=== PATIENT | male | born 1950 | race Caucasian/White ===

== ENCOUNTER → 2017-10-22 12:12 | Outpatient (CLI) | payer OTHER, SELFPAY ==
--- NOTE | 2017-10-22 12:14 | DI.RAD.S_ITS ---
PROCEDURE: XR FOOT RT MIN 3V INDICATIONS: foot injury/pain TECHNIQUE: 3 views of the foot were acquired. COMPARISON: None. FINDINGS: Bones: No fractures or dislocations. No suspicious bony lesions. Mild marginal spurring at the first MTPJ. Plantar spur posterior calcaneus. Soft tissues: No tibiotalar joint effusion. Achilles tendon appears normal. Periarticular calcifications medial to the first IP joint. IMPRESSION: No acute fracture. Mild degenerative changes. Dictated by: Mateus Dong M.D. on 10/22/2017 at 13:05 Approved by: Mateus Dong M.D. on 10/22/2017 at 13:07
== END ==
PROVIDERS: Family Provider Internal Medicine; PCP Internal Medicine; Visit Provider Physician Assistant
DX: M79.671 Pain in right foot (principal)
CPT/HCPCS: 73630

== ENCOUNTER → 2017-11-12 10:09 | Outpatient (CLI) | payer OTHER, SELFPAY ==
--- NOTE | 2017-11-12 10:11 | DI.RAD.S_ITS ---
PROCEDURE: XR CHEST 2V INDICATIONS: right sided chest pain, pain with inspiration TECHNIQUE: 2 views of the chest were acquired. COMPARISON: None. FINDINGS: Surgical changes and devices: None. Lungs and pleura: No pleural effusions or pneumothorax. Diffuse, widespread bilateral interstitial opacities present. No focal lung consolidation. Mediastinum: Mediastinal contours are normal. Heart size is normal. Bones and chest wall: No suspicious bony abnormalities. Soft tissues appear unremarkable. IMPRESSION: 1. Diffuse, bilateral widespread interstitial opacities are present which may be chronic and related to pulmonary fibrosis, although acute interstitial process such as pulmonary edema or atypical pneumonia cannot be excluded and clinical correlation and followup is recommended. Comparison with old radiographs if available would be helpful. Continued surveillance with chest radiographs could also be performed as clinically warranted Dictated by: Jesus HO Interpreted: Marcos Head MD on 11/12/2017 at 10:44 Approved by: Marcos Head M.D. on 11/12/2017 at 13:04
== END ==
PROVIDERS: Family Provider Internal Medicine; PCP Internal Medicine; Visit Provider Internal Medicine
DX: R07.1 Chest pain on breathing (principal)
CPT/HCPCS: 71046

== ENCOUNTER → 2017-11-16 07:34 | Outpatient (CLI) | payer OTHER, SELFPAY ==
--- NOTE | 2017-11-16 07:39 | DI.CT.S_ITS ---
PROCEDURE: CT CHEST WO CON INDICATIONS: ABNORMAL FINDING OF LUNG FIELD TECHNIQUE: Noncontrast 2.0-2.5 mm thick sections acquired from the pulmonary apices to the posterior costophrenic angles. 7 mm thick coronal and sagittal MIP reformats were then acquired. A low radiation dose technique was utilized. COMPARISON: [facility], CR, XR CHEST 2V, 11/12/2017, 10:08. FINDINGS: Image quality: Diagnostic, given the low radiation dose technique. Lungs and pleura: The see diffuse interstitial pattern seen on plain film is less apparent and may have represented an acute process such as a atypical pneumonia or allogenic inflammation that is resolving. There is a subpleural bleb and mild thickening in the lateral aspect of the right upper lobe. Minimal reticular nodular densities in the periphery of the lung bilaterally. There is a 10 mm subpleural groundglass nodule in the right lower lobe, series 3/image 38, with mild associated groundglass density. No pleural effusions or pneumothorax. Central airways appear patent bilaterally. Mediastinum: Heart size is normal. No pericardial effusion. No mediastinal adenopathy by size criteria. Thoracic aorta and central pulmonary arteries are normal in size. Esophagus is normal in caliber. No hiatal hernia. Bones and chest wall: No suspicious bony lesions. No vertebral body compression fractures. No axillary or supraclavicular adenopathy by size criteria. Thyroid gland appears normal. Abdomen: Visualized upper abdomen solid organs and bowel loops appear normal in the absence of contrast. Partially visualized water density cystic mass upper pole of the left kidney. IMPRESSION: 1. Diffuse interstitial process on plain film exam is less apparent on this study, possibly resolving acute inflammatory process. Follow up with plain film exam in 3-6 weeks is suggested. 2. Focal area of groundglass opacity and 1 cm nodular density is nonspecific. A followup noncontrast CT chest is advised as noted below Fleischner Society criteria for SUB-SOLID lung nodule followup. Solitary pure ground-glass nodules<6 mm (ground glass or part solid)No followup needed. 6 mm or larger (ground glass)CT at 6-12 months to confirm persistence, then CT every 2 years until 5 years.6 mm or larger (part solid)CT at 3-6 months to confirm persistence, then annual CT until 5 years if unchanged and solid component remains <6 mm. Multiple sub-solid nodules<6 mmCT at 3-6 months, then CT consider at 2 & 4 years for high risk patients. [address] at 3-6 months. Subsequent management based on most suspicious lesions. Recommendations do not apply to lung cancer screening, patients with immunosuppression, or patients with known primary cancer. Dictated by: Mateus Dong M.D. on 11/16/2017 at 8:31 Approved by: Mateus Dong M.D. on 11/16/2017 at 8:44
== END ==
PROVIDERS: Family Provider Internal Medicine; PCP Internal Medicine; Visit Provider Internal Medicine
DX: R91.8 Other nonspecific abnormal finding of lung field (principal)
CPT/HCPCS: 71250

== ENCOUNTER → 2018-01-22 07:05 | Outpatient (CLI) | payer OTHER, SELFPAY ==
--- NOTE | 2018-01-22 07:07 | DI.RAD.S_ITS ---
PROCEDURE: XR CHEST 2V INDICATIONS: abnormal CXR and CT TECHNIQUE: 2 views of the chest were acquired. COMPARISON: [facility], CR, XR CHEST 2V, 11/12/2017, 10:08. FINDINGS: Surgical changes and devices: None. Lungs and pleura: No pleural effusions or pneumothorax. Diffuse bilateral interstitial prominence is unchanged, no focal consolidation has developed. Mediastinum: Mediastinal contours are normal. Heart size is normal. Bones and chest wall: No suspicious bony abnormalities. Soft tissues appear unremarkable. IMPRESSION: Findings probably represent chronic interstitial lung disease of indeterminate etiology. No interval change or acute process is evident. Dictated by: Mateus Dong M.D. on 01/22/2018 at 8:11 Approved by: Mateus Dong M.D. on 01/22/2018 at 8:12
== END ==
PROVIDERS: Family Provider Internal Medicine; PCP Internal Medicine; Visit Provider Internal Medicine
DX: R91.8 Other nonspecific abnormal finding of lung field (principal)
CPT/HCPCS: 71046

== ENCOUNTER → 2018-03-25 10:21 | Outpatient (CLI) | payer OTHER, SELFPAY ==
--- NOTE | 2018-03-25 10:27 | DI.RAD.S_ITS ---
PROCEDURE: XR CHEST 2V INDICATIONS: chronic cough, abnormal CT scan TECHNIQUE: 2 views of the chest were acquired. COMPARISON: [facility], CT, CT CHEST WO CON, 11/16/2017, 7:33. [facility], CR, XR CHEST 2V, 01/22/2018, 6:45. [facility], CR, XR CHEST 2V, 11/12/2017, 10:08. FINDINGS: Surgical changes and devices: None. Lungs and pleura: No pleural effusions or pneumothorax. Lungs are abnormal with a chronic mild interstitial prominence. Mediastinum: Mediastinal contours are normal. Heart size is normal. Bones and chest wall: No suspicious bony abnormalities. Soft tissues appear unremarkable. 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 The area of plain film concern from CT scanning 11/16/17 shows no evidence of interval development of mass. Please review the recommendations from the prior CT report and determine whether CT followup is warranted clinically. Abnormalities visible by CT scanning may not be detectable by followup plain film imaging. Dictated by: Cj Last M.D. on 03/25/2018 at 10:53 Approved by: Cj Last M.D. on 03/25/2018 at 10:55
== END ==
PROVIDERS: PCP Internal Medicine; Visit Provider Internal Medicine
DX: J84.9 Interstitial pulmonary disease, unspecified (principal); R05 Cough
CPT/HCPCS: 71046

== ENCOUNTER → 2018-04-04 07:11 | Outpatient (CLI) | payer OTHER, SELFPAY | PROVIDERS: PCP Internal Medicine; Visit Provider Internal Medicine | DX: R10.9 Unspecified abdominal pain (principal) | CPT/HCPCS: 86677 ==

== ENCOUNTER → 2018-04-11 08:53 | Outpatient (CLI) | payer OTHER, SELFPAY ==
--- NOTE | 2018-04-12 16:33 | PM.PFT.1 ---
Pulmonary Function Test Referral & Results Date Patient Seen: 04/11/18 Requesting provider: Gina Fontanez Indication: Cough Results: The spirometry demonstrates an FVC of 4.79 L which is 110% of predicted. The FEV1 was measured at 4.25 L which is 132% of predicted. The FEV1/FVC ratio was 89 which is 119% of predicted. Following the administration of bronchodilator there was no appreciable change in above normal numbers. Lung volumes show an SVC of 5.09 L which is 114% of predicted. The diffusing capacity was measured at 29.97 which is 96% of predicted. The maximum voluntary ventilation was normal Interpretation: This study demonstrates normal pulmonary function
== END ==
PROVIDERS: Family Provider Internal Medicine; PCP Internal Medicine; Visit Provider Internal Medicine
DX: R05 Cough (principal)
CPT/HCPCS: 94010; 94060; 94726; 94729

== ENCOUNTER → 2018-04-17 08:42 | Outpatient (CLI) | payer OTHER, SELFPAY ==
--- NOTE | 2018-04-17 08:49 | DI.CT.S_ITS ---
PROCEDURE: CT CHEST WO CON INDICATIONS: Abnormal ground glass opacities TECHNIQUE: Noncontrast 2.0-2.5 mm thick sections acquired from the pulmonary apices to the posterior costophrenic angles. 7 mm thick coronal and sagittal MIP reformats were then acquired. A low radiation dose technique was utilized. COMPARISON: [facility], CT, CT CHEST WO CON, 11/16/2017, 7:33. FINDINGS: Image quality: Diagnostic, given the low radiation dose technique. Lungs and pleura: Previously described 1 cm ground glass nodular opacity is grossly unchanged. There is decreasing groundglass opacity in the surrounding area since the prior study. No acute consolidation. No pleural effusion identified. Subsegmental scarring or atelectasis in the lung bases appears grossly unchanged. Upper lobe predominant centrilobular emphysema Mediastinum: Heart size is normal. Coronary artery calcifications are present. No pericardial effusion. No mediastinal adenopathy by size criteria. Thoracic aorta and central pulmonary arteries are normal in size. Esophagus is normal in caliber. No hiatal hernia. Bones and chest wall: No suspicious bony lesions. No vertebral body compression fractures. No axillary or supraclavicular adenopathy by size criteria. Thyroid gland negative. Partially visualized simple appearing left renal cyst IMPRESSION: Grossly unchanged appearance of 1 cm right lower lobe subpleural ground glass nodular opacity. There is improving postinflammatory ground glass opacities in the surrounding area however indolent neoplasm such as adenocarcinoma is not excluded. Recommend followup with noncontrast chest CT in 12 months. Elsewhere, subsegmental atelectasis/scarring. Upper lobe centrilobular emphysema. Fleischner Society criteria for SOLID lung nodule followup. Nodule size (mm)Low-risk patientHigh-risk patient<6 (single or multiple)No routine followup.Optional CT at 12 months. 6-8 (single or multiple)CT at 6-12 months, then optional CT at 18-24 mo.CT at 6-12 months, then CT at 18-24 months. >8 (single)CT at 3 months, PET-CT, or biopsy. Same as for low-risk pts. >8 (multiple)CT at 3-6 months, then optional CT at 18-24 mo.CT at 3-6 months, then CT at 18-24 months. Fleischner Society criteria for SUB-SOLID lung nodule followup. Solitary pure ground-glass nodules<6 mm (ground glass or part solid)No followup needed. 6 mm or larger (ground glass)CT at 6-12 months to confirm persistence, then CT every 2 years until 5 years.6 mm or larger (part solid)CT at 3-6 months to confirm persistence, then annual CT until 5 years if unchanged and solid component remains <6 mm. Multiple sub-solid nodules<6 mmCT at 3-6 months, then CT consider at 2 & 4 years for high risk patients. [address] at 3-6 months. Subsequent management based on most suspicious lesions. Recommendations do not apply to lung cancer screening, patients with immunosuppression, or patients with known primary cancer. Dictated by: Marcos Head M.D. on 04/17/2018 at 10:54 Approved by: Marcos Head M.D. on 04/17/2018 at 11:03
== END ==
PROVIDERS: Family Provider Internal Medicine; PCP Internal Medicine; Visit Provider Internal Medicine
DX: R91.8 Other nonspecific abnormal finding of lung field (principal); J43.2 Centrilobular emphysema; J98.4 Other disorders of lung; N28.1 Cyst of kidney, acquired
CPT/HCPCS: 71250

== ENCOUNTER → 2019-02-05 12:43 | Outpatient (CLI) | payer OTHER, SELFPAY ==
--- NOTE | 2019-02-05 | DI.RAD.S_ITS ---
PROCEDURE: XR KNEE LT 1TO2V INDICATIONS: Bilateral Knee Pain TECHNIQUE: 2 views of the knee were acquired. COMPARISON: None. FINDINGS: Bones: No fractures or dislocations. No suspicious bony lesions. Severe patellofemoral compartment osteoarthritis. Moderate medial compartment osteoarthritis. Mild lateral compartment osteoarthritis. Soft tissues: No joint effusion. No suspicious soft tissue calcifications. IMPRESSION: Tricompartmental left knee osteoarthritis. Dictated by: Chantel Venegas MD, PhD on 02/05/2019 at 16:55 Approved by: Chantel Venegas MD, PhD on 02/05/2019 at 16:55
--- NOTE | 2019-02-05 | DI.RAD.S_ITS ---
PROCEDURE: XR KNEE RT 1TO2V INDICATIONS: Bilateral knee pain. TECHNIQUE: 2 views of the knee were acquired. COMPARISON: None. FINDINGS: Bones: No fractures or dislocations. No suspicious bony lesions. Moderate to severe medial and patellofemoral compartment osteoarthritis. Mild lateral compartment osteoarthritis. Soft tissues: No joint effusion. No suspicious soft tissue calcifications. IMPRESSION: Tricompartmental right knee osteoarthritis. Dictated by: Chantel Venegas MD, PhD on 02/05/2019 at 16:56 Approved by: Chantel Venegas MD, PhD on 02/05/2019 at 16:56
== END ==
PROVIDERS: PCP Internal Medicine; Visit Provider Internal Medicine
DX: M17.12 Unilateral primary osteoarthritis, left knee (principal)
CPT/HCPCS: 73560

== ENCOUNTER 2019-08-21 12:49 | Day surgery (SDC) | payer MEDICARE, OTHER, SELFPAY ==
[2019-08-21 13:16] VITALS: BP 156/82; PULSE 65; RESP 17; TEMP 36.3; O2SAT 98; BMI 29.7
[2019-08-21] MEDS: LACTATED RINGERS 1,000 ML 100 ML IV (13:24)
--- NOTE | 2019-08-21 13:51 | PM.HP.1 ---
History of Present Illness History of Present Illness Date Patient Seen: 08/21/19 Time Patient Seen: 13:55 Chief complaint: [id number] Narrative: Ruy is a 69-year-old male with a history of adenomatous polyp resected last colonoscopy 5 years ago. He presents for routine screening. No personal or family history of colon cancer. On further history denies any recent gastrointestinal symptoms. No nausea, vomiting, abdominal pain, loss of appetite, unexplained weight loss, change in bowel habits, diarrhea, constipation, melena, hematochezia, or bright red blood per rectum. Patient History Medical History Colon polyp (Chronic) Hyperlipidemia (Chronic) Kidney stones (Chronic ~2000) Lichen planus (Chronic) Family & Social History Family History Sister Age: 80 Breast cancer, stage 0 Brother No problems noted. Father No problems noted. Mother No problems noted. Social History: household members spouse Tobacco & Substance use: Smoking Status Never smoker alcohol intake current alcohol intake frequency 0-2 drinks per day Substance Use Type marijuana Meds Home Medications and Allergies Home Medications Medication Instructions Recorded Confirmed Type No Known Home Medications 08/21/19 08/21/19 History Allergies Allergy/AdvReac Type Severity Reaction Status Date / Time Sulfa (Sulfonamide Allergy Severe RASH Verified 08/21/19 13:15 Antibiotics) [SULFA (SULFONAMIDE ANTIBIOTICS)] Review of Systems Review of Systems Narrative: A 10 point review of systems is negative except as noted in the HPI Exam Vital Signs (past 8 hours): - 08/21/19 13:16 Temperature 97.4 F L Pulse Rate 65 Respiratory Rate 17 Blood Pressure 156/82 H Pulse Oximetry 98 Oxygen Delivery Method Room Air Narrative Exam Narrative: General-no acute distress, well nourished HEENT-moist mucous membranes, no scleral icterus Neck-supple, no lymphadenopathy Chest- non labored respirations, clear to auscultation bilaterally Cardiac-regular rate no peripheral edema Abdomen-soft, nontender, non distended Extremities-warm, well perfused Neurological-alert and oriented, no focal deficits Assessment & Plan Assessment and plan (1) Screening for colon cancer: Current visit: Yes Status: Acute Assessment & Plan narrative: The patient requires colorectal screening and colonoscopy is recommended. Technical details were discussed. Risks, benefits, alternatives explained. Risks including but not limited to myocardial infarction, aspiration, bleeding, pain, missed lesion, incomplete examination, need for further radiographic studies, colonic perforation, and need for major abdominal surgery were discussed. All questions were answered to their satisfaction, and they are in agreement with this plan.
--- NOTE | 2019-08-21 14:32 | PM.OP.ENDO ---
Operative Date/Time/Diagnoses Date of procedure: 08/21/19 Time of procedure: 14:32 Pre-op diagnosis: History adenomatous polyps Post-op diagnosis: same Procedure & Clinicians Study performed: Colonoscopy Same procedure as scheduled: Yes Indications: History adenomatous polyps, last colonoscopy 5 years ago Surgeon: Prasanna Lai Procedure Notes SCOAP/Timeout: Performed Procedure in detail: Patient placed in left lateral decubitus position. Time out was performed. Procedural sedation was administered with Versed and Fentanyl. A rectal exam demonstrated no external hemorrhoids no internal masses. Colonoscopy scope was placed into the rectum and advanced through the colon to the cecum. The ileocecal valve was identified. The scope was then slowly withdrawn examining colon thoroughly in all directions. The colonoscopy was notable for the following 1. Ramirez diverticulosis 2. No masses or polyps 3. Quality of prep fair Scope withdrawal time: 6 Sedation minutes: 20 Findings: diverticulosis Specimen(s): none sent Complications: none Impression: Diverticulosis Post-procedure Recommendations: Colonscopy in 10 years and High fiber diet Disposition: same day surgery
[2019-08-21] MEDS: MIDAZOLAM 5 MG/5 ML VIAL IV (14:33)
[2019-08-21] MEDS: fentaNYL 250 MCG/5 ML INJ IV (14:33)
[2019-08-21 14:38] VITALS: BP 118/76; PULSE 54; RESP 12; TEMP 36; O2SAT 94
[2019-08-21 14:43] VITALS: BP 152/80; PULSE 54; RESP 14; O2SAT 96
[2019-08-21 14:50] VITALS: BP 132/75; PULSE 54; RESP 20; TEMP 36; O2SAT 98
[2019-08-21 15:12] VITALS: BP 149/75; PULSE 50; RESP 16; TEMP 36.1; O2SAT 96
== END 2019-08-21 15:23 | disposition home or self-care (01) ==
PROVIDERS: PCP Internal Medicine; Referring Provider Surgery; Visit Provider Surgery
PROC: 0DJD8ZZ Inspection of Lower Intestinal Tract, Via Natural or Artificial Opening Endoscopic (ICD-10-PCS; CPT 45378; principal; 2019-08-21 14:30)
DX: Z12.11 Encounter for screening for malignant neoplasm of colon (principal); E78.5 Hyperlipidemia, unspecified; Z86.010 Personal history of colon polyps; K57.30 Diverticulosis of large intestine without perforation or abscess without bleeding
CPT/HCPCS: G0105; 99152; J2250; J3010

== ENCOUNTER → 2020-11-15 09:51 | Outpatient (CLI) | payer MEDICARE, OTHER, SELFPAY ==
--- NOTE | 2020-11-15 | DI.RAD.S_ITS ---
PROCEDURE: XR CHEST 2V INDICATIONS: Chest pain, unspecified TECHNIQUE: 2 views of the chest were acquired. COMPARISON: [facility], CR, XR CHEST 2V, 03/25/2018, 10:31. FINDINGS: Surgical changes and devices: None. Lungs and pleura: Lungs are clear. No pleural effusions or pneumothorax. Mediastinum: Mediastinal contours are normal. Heart size is mildly enlarged. Bones and chest wall: No suspicious bony abnormalities. Soft tissues appear unremarkable. IMPRESSION: No acute cardiopulmonary pathology. Dictated by: Delon Chavez M.D. on 11/15/2020 at 10:55 Approved by: Delon Chavez M.D. on 11/15/2020 at 10:55
== END ==
PROVIDERS: PCP Internal Medicine; Referring Provider Internal Medicine; Visit Provider Internal Medicine
DX: R05 Cough (principal)
CPT/HCPCS: 71046

== ENCOUNTER → 2020-11-18 09:01 | Outpatient (CLI) | payer MEDICARE, OTHER, SELFPAY ==
--- NOTE | 2020-11-18 09:05 | DI.US.S_ITS ---
PROCEDURE: US ABDOMEN COMPLETE INDICATIONS: Right upper quadrant pain TECHNIQUE: Real-time scanning was performed of the abdominal and retroperitoneal organs, with image documentation. COMPARISON: None. FINDINGS: Liver: Liver is normal in size and mildly diffusely hyperechoic and parenchymal echotexture. Gallbladder: The gallbladder is normal without stones, sludge, wall thickening, or pericholecystic fluid. Biliary ducts: Intrahepatic bile ducts are non-dilated. Extrahepatic bile duct caliber measures three mm. Normal is 6-7 mm or less in diameter, or 10 mm or less post-cholecystectomy. Pancreas: Visualized portions of the pancreas are sonographically normal. Spleen: Spleen is normal in size and homogeneous in echotexture. Kidneys: Kidneys are normal in size and echotexture. Right kidney measures 12.2 cm long; left kidney measures 11.7 cm long. No hydronephrosis. Questionable 5 mm nonobstructing calcification in the lower pole of the right kidney collecting system. No solid masses. A prominent cyst arises from the upper pole of the left kidney measuring 6.2 cm. No internal complexity. Aorta: Visualized aorta is normal in caliber at less than 3 cm. Iliacs: Proximal common iliac arteries are normal in caliber at less than 2.5 cm. IVC: Intrahepatic inferior vena cava is patent. Miscellaneous: No free abdominal fluid. IMPRESSION: 1. Normal gallbladder. 2. Probable mild hepatic steatosis or other intrinsic liver disease. 3. Possible right lower pole intrarenal nonobstructing calcification. 4. Simple left renal cyst. Dictated by: Christen Denson M.D. on 11/18/2020 at 10:59 Approved by: Christen Denson M.D. on 11/18/2020 at 11:02
== END ==
PROVIDERS: PCP Internal Medicine; Referring Provider Internal Medicine; Visit Provider Internal Medicine
DX: R10.11 Right upper quadrant pain (principal); N28.1 Cyst of kidney, acquired
CPT/HCPCS: 76700

== ENCOUNTER → 2020-12-16 12:38 | Outpatient (CLI) | payer MEDICARE, OTHER, SELFPAY ==
--- NOTE | 2020-12-16 12:41 | DI.CT.S_ITS ---
PROCEDURE: CT CHEST W CON INDICATIONS: Phlegm. Right lower chest pain TECHNIQUE: After the administration of intravenous contrast, 5 mm thick sections acquired from the pulmonary apices to the posterior costophrenic angles. 1 mm axial lung, 5 mm thick coronal and sagittal reformats and 7 mm axial MIP were acquired. For radiation dose reduction, the following was used: automated exposure control, adjustment of mA and/or kV according to patient size. COMPARISON: [facility], CT, CT CHEST WO [facility], 04/17/2018, 8:43. FINDINGS: Image quality: Excellent. Lungs and pleura: No acute consolidation. There are subpleural reticular opacities bilaterally which appear minimally increased compared to the prior study and are compatible with chronic interstitial lung disease. No acute consolidation. No definite honeycombing or bronchiectasis. There are mild paraseptal emphysematous changes. No pleural effusions or pneumothorax. The trachea and central airways appear patent. Mediastinum: Heart size is normal. No pericardial effusion. There is mild coronary arterial vascular calcification. No mediastinal or hilar adenopathy by size criteria. Thoracic aorta and central pulmonary arteries are normal in size. Esophagus is normal in caliber. No hiatal hernia. Bones and chest wall: No suspicious bony lesions. No vertebral body compression fractures. No axillary or supraclavicular adenopathy by size criteria. Thyroid gland demonstrates no discrete nodules. Abdomen: Visualized upper abdomen demonstrates a partially visualized exophytic left renal cyst. IMPRESSION: 1. No acute consolidation to suggest pneumonia. 2. Bilateral peripheral subpleural reticular opacities compatible with chronic interstitial lung disease. No definite honeycombing or traction bronchiectasis. Dictated by: Usman Chamberlain M.D. on 12/16/2020 at 14:34 Approved by: Usman Chamberlain M.D. on 12/16/2020 at 14:40
== END ==
PROVIDERS: PCP Internal Medicine; Referring Provider Internal Medicine; Visit Provider Internal Medicine
DX: R07.9 Chest pain, unspecified (principal)
CPT/HCPCS: 71260; Q9967

== ENCOUNTER → 2021-01-10 07:01 | Outpatient (CLI) | payer MEDICARE, OTHER, SELFPAY ==
[2021-01-10 07:49] LABS: COVID19 -Nasal RAPID Negative (Negative)
== END ==
PROVIDERS: PCP Internal Medicine; Referring Provider Internal Medicine; Visit Provider Internal Medicine
DX: Z20.822 Contact with and (suspected) exposure to COVID-19 (principal)
CPT/HCPCS: 87635; C9803

== ENCOUNTER → 2021-01-10 08:54 | Outpatient (CLI) | payer MEDICARE, OTHER, SELFPAY ==
--- NOTE | 2021-01-12 09:18 | P.PFT.S_ITS ---
Pulmonary Function Test Referral & Results Date Patient Seen: 01/10/21 Requesting provider: Gina Fontanez Results: The spirometry demonstrates an FVC of 4.70 L which is 111% of predicted. The FEV1 was measured at 3.25 L which is 104% of predicted. The FEV1/FVC ratio was 69 which is 94% of predicted. Following the administration of bronchodilator there was no appreciable change. Lung volumes show an SVC of 4.68 L which is 105% of predicted. The diffusing capacity was measured at 24.21 which is 78% of predicted. No hemoglobin value was provided, so no correction for potential anemia could be made, if appropriate. The maximum voluntary ventilation was normal Interpretation: This study demonstrates probably normal pulmonary function. There may be a minimal reduction in diffusing capacity suggesting the possibility of disease at the capillary alveolar level, although this could also be considered normal Compared to PFTs performed in April 2018, current study does show slight decl ine in diffusing capacity. Previous spirometry was also normal.
== END ==
PROVIDERS: PCP Internal Medicine; Referring Provider Internal Medicine; Visit Provider Internal Medicine
DX: J84.89 Other specified interstitial pulmonary diseases (principal); Z87.891 Personal history of nicotine dependence; Z20.822 Contact with and (suspected) exposure to COVID-19
CPT/HCPCS: 87635; 94060; 94726; 94729; C9803

== ENCOUNTER → 2021-01-17 08:55 | Outpatient (CLI) | payer MEDICARE, OTHER, SELFPAY ==
[2021-01-17 11:43] LABS: COVID19 -Nasal RAPID Negative (Negative)
== END ==
PROVIDERS: PCP Internal Medicine; Visit Provider Nurse Practitioner
DX: Z01.812 Encounter for preprocedural laboratory examination (principal); Z20.822 Contact with and (suspected) exposure to COVID-19
CPT/HCPCS: 87635; C9803

== ENCOUNTER → 2021-01-18 15:08 | Outpatient (CLI) | payer MEDICARE, OTHER, SELFPAY ==
--- NOTE | 2021-01-18 15:11 | DI.NM.S_ITS ---
PROCEDURE: NM EXERCISE TREADMILL NON NUC COMPARISON: None. INDICATIONS: Other chest pain FINDINGS: The patient exercised for 6 minutes and 19 seconds reaching 7.0 METs, ERAN +7%. 101% of maximum preducted heart rate achieved. Borderline hypertensive response to exercise (resting BP 140/80mmHg, max BP 208/106mmHg). Epigastric pain at max exercise. Mild horizontal ST depressions in the anterolateral leads during recovery. IMPRESSION: Abnormal stress test with probable angina (epigastric pain with exercise) and ischemia ST changes. Mildly reduced exercise capacity (7.0 METs, ERAN +7%). Recommend cardiology consultation. Dictated by: Stefanie Jansen MD on 01/18/2021 at 17:39 Approved by: Stefanie Jansen MD on 01/18/2021 at 17:42
== END ==
PROVIDERS: PCP Internal Medicine; Referring Provider Internal Medicine; Visit Provider Internal Medicine
DX: R94.39 Abnormal result of other cardiovascular function study (principal); R07.89 Other chest pain; I25.84 Coronary atherosclerosis due to calcified coronary lesion
CPT/HCPCS: 93016; 93017; 93018

== ENCOUNTER → 2021-03-04 15:15 | Outpatient (CLI) | payer MEDICARE, OTHER, SELFPAY ==
--- NOTE | 2021-03-04 | DI.RAD.S_ITS ---
PROCEDURE: XR RIBS RT MIN 3V W CXR 1V INDICATIONS: Right Anterior Rib Pain TECHNIQUE: 2 views of the right ribs were acquired, along with a single view chest. COMPARISON: None. FINDINGS: Surgical changes and devices: None. Bones and chest wall: No fractures or dislocations. No suspicious bony lesions. Overlying soft tissues appear unremarkable. Lungs and pleura: No pleural effusions or pneumothorax. Lungs appear clear. Chronic interstitial changes noted. Mediastinum: Mediastinal contours appear normal. Heart size is normal. IMPRESSION: No rib fracture or pneumothorax. Pulmonary chronic interstitial changes without focal infiltrate, pleural effusion Approved by: Usama Vincent M.D. on 03/04/2021 at 15:31
== END ==
PROVIDERS: PCP Internal Medicine; Referring Provider Internal Medicine; Visit Provider Internal Medicine
DX: R07.81 Pleurodynia (principal); J90 Pleural effusion, not elsewhere classified
CPT/HCPCS: 71101

== ENCOUNTER → 2021-03-10 10:19 | Outpatient (CLI) | payer MEDICARE, OTHER, SELFPAY ==
--- NOTE | 2021-03-10 10:59 | DI.CT.S_ITS ---
PROCEDURE: CT ABDOMEN PELVIS W CON INDICATIONS: Right upper quadrant pain TECHNIQUE: After the administration of oral and IV contrast, axial sections were acquired from the lung bases to the pubic symphysis. Coronal and sagittal reformats were performed. For radiation dose reduction, the following was used: automated exposure control, adjustment of mA and/or kV according to patient size. COMPARISON: None. FINDINGS: Lower thorax: Chronic interstitial change noted at both lung bases without focal infiltrate. Heart size is normal. No hiatal hernia. Liver: Normal in size and attenuation. No contour deformity present. Small 4 mm calcified granuloma noted in the left hepatic lobe. Biliary system: No calcified cholelithiasis or pericholecystic inflammation. No intra or extrahepatic bile duct dilatation. Pancreas: Unremarkable without mass or inflammation evident. Spleen: Normal in size and density. Adrenals: Normal morphology and density. Reproductive system: Unremarkable as visualized. Urinary system: Normal renal size and attenuation. 6.1 cm left renal simple cortical cyst present. There is a nonobstructive 3 mm right renal calculus. Otherwise, no renal calculi, hydronephrosis, or solid mass present. Urinary bladder unremarkable. Gastrointestinal system: The bowel appears unremarkable with no evidence of bowel obstruction or inflammation. The stomach appears unremarkable. Multiple diverticula arise from the colon without evidence of diverticulitis. Moderate fecal debris noted in the right colon Appendix: Normal appendix identified. No evidence of appendicitis. Peritoneal spaces: No mesenteric or retroperitoneal adenopathy. No free air. No free fluid. Vasculature: The IVC, aorta and iliac vasculature are unremarkable. Musculoskeletal: Normal bone mineralization. Degenerative disc disease and arthropathy noted in lower lumbar spine. No acute fractures. Abdominal wall intact without evidence of ventral or inguinal hernias. IMPRESSION: 1. No acute CT abdominal or pelvic findings. 2. Colonic diverticulosis without evidence of diverticulitis. 3. Simple left renal cyst without obstructive uropathy. Approved by: Usama Vincent M.D. on 03/10/2021 at 12:03
== END ==
PROVIDERS: PCP Internal Medicine; Referring Provider Internal Medicine; Visit Provider Internal Medicine
DX: R10.11 Right upper quadrant pain (principal); K57.90 Diverticulosis of intestine, part unspecified, without perforation or abscess without bleeding; N28.1 Cyst of kidney, acquired
CPT/HCPCS: 74177

== ENCOUNTER → 2022-01-12 08:29 | Outpatient (CLI) | payer MEDICARE, OTHER, SELFPAY ==
--- NOTE | 2022-01-12 | DI.US.S_ITS ---
PROCEDURE: US ABD AORTA ANEURYSM SCREEN INDICATIONS: Encounter for screening for cardiovascular disorde TECHNIQUE: Real time scanning was performed of the aorta and iliac arteries, with image documentation. COMPARISON: [facility], CT, CT ABDOMEN PELVIS W CON, 03/10/2021, 11:16. FINDINGS: Aorta: Proximal aortic diameter measures 2.6 cm. Mid-aorta measures 2.5 cm. Distal aortic diameter is 2 cm. Iliac arteries: Right common iliac artery measures 1.1 cm. Left common iliac artery measures 1.1 cm. IMPRESSION: Negative for aneurysm. Dictated by: Sam Mccauley M.D. on 01/12/2022 at 8:56 Approved by: Sam Mccauley M.D. on 01/12/2022 at 8:57
== END ==
PROVIDERS: PCP Family Medicine; Referring Provider Family Medicine; Visit Provider Family Medicine
DX: Z13.6 Encounter for screening for cardiovascular disorders (principal)
CPT/HCPCS: 76706

== ENCOUNTER → 2022-04-18 08:00 | Outpatient (CLI) | payer MEDICARE, OTHER, SELFPAY ==
[2022-04-18 08:45] LABS: Add Manual Diff / Slide Review NO; Basophils Absolute Auto 100 /uL (0-100); Eosinophils Absolute Auto 200 /uL (0-450); Eosinophils Percent Auto 3.2 % (2-4); Hematocrit 44.4 % (41-53); Hemoglobin 15.2 g/dL (13.5-17.5); Lymphocytes Absolute Auto 1900 /uL (1100-4500); Lymphocytes Percent Auto 34.2 % (25-40); Mean Corpuscular HGB Conc 34.2 % (30-36); Mean Corpuscular Hemoglobin 30.9 PG (26-34); Mean Corpuscular Volume 90.3 fL (80-100); Monocytes Absolute Auto 500 /uL (0-900); Monocytes Percent Auto 8.6 % (3-14); Neutrophils Absolute Auto 3000 /uL (1500-7000); Platelet Count 194 X10^3/uL (150-400); Red Blood Cell Count 4.91 X10^6/uL (4.5-5.9); Red Cell Distribution Width 14.1 % (11.6-14.8); White Blood Cell Count 5.6 X10^3/uL (4.5-11.0)
[2022-04-18 09:24] LABS: BUN Creatinine Ratio 17.9 (6-22); Blood Urea Nitrogen 12 mg/dL (9-20); Calcium 9.6 mg/dL (8.4-10.2); Carbon Dioxide 24 mmol/L (22-32); Chloride 104 mmol/L (98-107); Cholesterol 171 mg/dL (140-199); Estimated Glomerular Filt Rate > 60 mL/min (>60); Glucose 126 mg/dL (80-110); HDL Cholesterol 93 mg/dL (40-60); HEMOLYSIS < 15 (0-50); LDL Cholesterol Calculated 69 mg/dL (<100); Potassium 4.4 mmol/L (3.4-5.1); Sodium 137 mmol/L (137-145); Triglycerides 46 mg/dL (35-150)
== END ==
PROVIDERS: PCP Family Medicine; Referring Provider Internal Medicine Cardiovascular Disease; Visit Provider Internal Medicine Cardiovascular Disease
DX: I10 Essential (primary) hypertension (principal); E78.5 Hyperlipidemia, unspecified
CPT/HCPCS: 36415; 80048; 80061; 85025

== ENCOUNTER 2022-10-30 10:44 | Emergency (ER) | payer OTHER, SELFPAY ==
--- NOTE | 2022-10-30 10:59 | DI.US.S_ITS ---
PROCEDURE: US PERIPH VENOUS LOW EXTREM LT INDICATIONS: PAIN , SWELLING, NO INJURY, RECENT TRAVEL TECHNIQUE: Real-time imaging, as well as color and pulse Doppler interrogation, were performed of the lower extremity deep veins from the inguinal ligament to the popliteal fossa. COMPARISON: None. FINDINGS: The common femoral, femoral and popliteal veins are normally compressible, and free of intraluminal thrombus. Color and pulse Doppler demonstrate normal phasic intraluminal flow. There is normal augmentation response to distal compression maneuver. IMPRESSION: Negative left lower extremity duplex venous ultrasound for DVT. Dictated by: Rom Sanchez M.D. on 10/30/2022 at 11:50 Approved by: Rom Sanchez M.D. on 10/30/2022 at 11:50
[2022-10-30 11:00] VITALS: BP 166/88; BP 189/89; PULSE 52; PULSE 58; RESP 14; RESP 16; TEMP 36.3; O2SAT 97; O2SAT 99; BMI 30.5
--- NOTE | 2022-10-30 12:35 | ED.EXTPRO ---
HPI - Extremity Problem General Chief complaint: Extremity Problem,Nontraumatic Stated complaint: left ankle pain, left calf swollen 4 days Time Seen by Provider: 10/30/22 10:59 Source: patient and family Mode of arrival: Ambulatory History of Present Illness HPI Narrative: 72-year-old male nonsmoker without significant chronic medical history presents for evaluation of swelling of left calf and ankle for at least the past few days. He denies any obvious injury or overuse. He denies systemic complaints such as dizziness, weakness or lightheadedness. He is had no fever or chills. Denies chest pain, shortness of breath or cough. He denies nausea, vomiting or diarrhea. He states yesterday it was more swollen and red he had been elevating it and it seems to be slightly better today. His primary source of pain is just inferior to the lateral malleolus in his stated as worse when he walks improves with rest. He denies any numbness, tingling or weakness. Related Data Home Medications Medication Instructions Recorded Confirmed No Known Home Medications 08/21/19 08/21/19 Allergies Allergy/AdvReac Type Severity Reaction Status Date / Time Sulfa (Sulfonamide Allergy Severe RASH Verified 08/21/19 13:15 Antibiotics) [SULFA (SULFONAMIDE ANTIBIOTICS)] Review of Systems Review of Systems Narrative: GENERAL: Denies chills, fatigue, malaise, fever, sweats. HEENT: Denies sinus pain, ear pain, sore throat, difficulty swallowing, dizziness. RESPIRATORY: Denies dyspnea, cough, wheezing, hemoptysis, sputum. CARDIOVASCULAR: Denies chest pain, palpitations, orthopnea, edema, GASTROINTESTINAL: Denies nausea, vomiting, abdominal pain, diarrhea, constipation, melena. : Denies dysuria, frequency, incontinence, hematuria, urinary retention. MUSCULOSKELETAL: See HPI SKIN: Denies rash, skin lesions, or other NEUROLOGIC: Denies weakness, headache, numbness, change in speech, confusion, seizures, incoordination. PSYCHIATRIC: No concerning psychosocial issues. 12 point review of systems is negative except for those stated above Patient History Medical History (Updated 10/30/22 @ 13:58 by Manfred Unger DO) Colon polyp Hyperlipidemia Kidney stones (~2000) Lichen planus Family History Sister Age: 83 Breast cancer, stage 0 Brother No problems noted. Father No problems noted. Mother No problems noted. Social History household members: spouse Smoking Status: Never smoker alcohol intake: current Smoking Status: Never smoker alcohol intake frequency: 0-2 drinks per day Substance Use Type: does not use Exam Narrative Exam Narrative: GENERAL: [72] year old patient appears stated age. Well-developed patient, in mild distress. HEAD: Atraumatic. Normocephalic. EYES: Pupils equal round and reactive. Extraocular motions intact. No scleral icterus. No injection or drainage. ENT: Nose without bleeding, purulent drainage. Throat without erythema, tonsillar hypertrophy or exudate. Airway patent. NECK: Trachea midline. Non tender CARDIOVASCULAR: Regular rate and rhythm without murmurs, gallops, or rubs. RESPIRATORY: Clear to auscultation. Breath sounds equal bilaterally. No wheezes, rales, or rhonchi. GASTROINTESTINAL: Abdomen soft, non-tender, nondistended. EXTREMITIES: Moderate left ankle edema, no warmth, no induration or fluctuance. Most tender in distribution of ATF ligament, no pain on squeeze test, negative Kia's. No erythema, warmth BACK: Nontender without deformity or crepitance. No flank tenderness. NEURO: AOx3. SKIN: No rash or erythema of visible areas Initial Vital Signs Initial Vital Signs: Vital Signs Temperature 97.3 F L 10/30/22 11:00 Pulse Rate 58 L 10/30/22 11:00 Respiratory Rate 14 10/30/22 11:00 Blood Pressure 189/89 H 10/30/22 11:00 Pulse Oximetry 99 10/30/22 11:00 Oxygen Delivery Method Room Air 10/30/22 11:00 Course Orders Ordered: ED Orders 10/30/22 10:59 US periph venous low extrem lt Stat 10/30/22 12:46 XR ankle LT min 3V Stat Consultations Consultation #1: discussed with second language tutor orthopedist (Dr. Luzma Murphy). We have reviewed the patient's history and physical and overall clinical course. She is reviewed imaging and agrees that findings are most likely consistent with chronic arthritis as opposed to any traumatic injury given patient's history. After this discussion she does question the potential of a slightly atypical presentation of gout and requests patient be drawn for uric acid Vital Signs Vital signs: Vital Signs - 8 hr 10/30/22 11:00 10/30/22 11:00 10/30/22 11:00 Temperature 97.3 F L Pulse Rate 58 L 52 L Respiratory Rate 14 16 Blood Pressure 189/89 H 166/88 H Pulse Oximetry 99 97 Oxygen Delivery Method Room Air Room Air MDM - Extremity (Nontraumatic) Lab Data Labs: Lab Results 10/30/22 10/30/22 Range/Units 14:05 14:05 ESR 10 (0-15) MM/HR Uric Acid 4.2 (3.5-8.5) mg/dL C-Reactive Protein 0.5 (<1.0) mg/dL MDM Narrative Medical decision making narrative: [72] year old patient presents with left leg/ankle swelling and pain Multiple etiologies for patient's symptoms considered including, but not limited to: [DVT vs. cellulitis vs. MSK inflammation vs. other] Prior Charts reviewed in our EMR Primary Historian: patient Imaging reviewed: Ultrasound demonstrates no obvious DVT, ankle x-ray Consultations: Patient's symptoms improved over duration of stay with above-stated therapies. Findings and discharge diagnosis discussed with patient/family followed by verbalization of understanding Return precautions discussed with patient/family whom verbalize understanding of diagnosis and plan Discharge Plan Departure Patient Disposition: Home Clinical Impression: Acute ankle pain Instructions: DI for Ankle Pain Activity Restrictions/Additional Instructions: *You have been diagnosed with [Left ankle pain. Your history and physical exam are very reassuring. Your ultrasound shows no sign of DVT and Xray suggests arthritic change. As we discussed there is a low likelihood of this being an atypical presentation of gout and labs have been drawn. I will call if there are abnormalities that would dictate we go down a different path.] *What to do: *Please continue to take your regular medications as directed. Also as we discussed, please consider the routine use of anti-inflammatories for the next 2-3 days to help with both pain and inflammation [ ] New medication prescriptions sent to your pharmacy: [ ] [ ] New medication written as a paper prescription [ ] No new medications given *Please follow up with your primary care provider in 2-3 days, call for an appointment. Let them know you were seen in the Emergency Department and that we ask that you be seen in follow up. We will electronically transmit a record of today's note if your PCP is in our system *Return to Emergency Department if you should have any new, worsening or concerning symptoms, such as [fever greater than 101 F, shaking chills, worsening pain, persistent vomiting or other bothersome symptoms] Prescriptions: No Action No Known Home Medications Referrals: José Askew MD [Primary Care Provider] - Stand Alone Forms: Patient Portal/API
--- NOTE | 2022-10-30 12:46 | DI.RAD.S_ITS ---
PROCEDURE: XR ANKLE LT MIN 3V INDICATIONS: pain, swelling lateral malleolus TECHNIQUE: 3 views of the ankle were acquired. COMPARISON: None. FINDINGS: Bones: Mild scattered degenerative changes. No displaced fracture or dislocation. Possible irregularity at the lateral talar process. The medial mortise is prominent. Plantar calcaneal enthesopathy. Soft tissues: Soft tissue swelling is present. Vascular calcifications. IMPRESSION: Possible lucency in the talus, with irregularity at the lateral talar process. This is not well evaluated on radiograph. The medial mortise is also prominent suggesting ligamentous injury. Consider further evaluation with CT or MRI depending on history. Dictated by: Ricardo Haider M.D. on 10/30/2022 at 13:32 Approved by: Ricardo Haider M.D. on 10/30/2022 at 13:34
[2022-10-30 14:20] VITALS: BP 168/77; PULSE 55; RESP 18; O2SAT 96
[2022-10-30 14:27] LABS: C-Reactive Protein Quant 0.5 mg/dL (<1.0); Uric Acid 4.2 mg/dL (3.5-8.5)
[2022-10-30 14:36] LABS: Erythrocyte Sedimentation Rate 10 MM/HR (0-15)
== END 2022-10-30 14:21 | disposition home or self-care (01) ==
PROVIDERS: Emergency Provider Emergency Medicine; PCP Family Medicine
DX: M79.89 Other specified soft tissue disorders (principal); M25.572 Pain in left ankle and joints of left foot
CPT/HCPCS: 36415; 73610; 84550; 85651; 86140; 93971; 99283; 99284

== ENCOUNTER → 2022-11-07 07:40 | Outpatient (CLI) | payer OTHER, SELFPAY ==
--- NOTE | 2022-11-07 | DI.US.S_ITS ---
PROCEDURE: US ABDOMEN LIMITED INDICATIONS: RUQ PAIN. DISEASE OF CORONARY ARTERY-AAA SCREENING. TECHNIQUE: Real-time scanning was performed of the abdominal and retroperitoneal organs, with image documentation. COMPARISON: None. FINDINGS: Liver: Liver is normal in size and homogeneous in echotexture. Gallbladder: The gallbladder wall measures 2.0 mm in diameter. No stones, sludge, pericholecystic fluid, or sonographic Laguna sign. Biliary ducts: Intrahepatic bile ducts are non-dilated. Extrahepatic bile duct caliber measures 5.3 mm. Normal is 6-7 mm or less in diameter, or 10 mm or less post-cholecystectomy. Pancreas: The pancreas is not well visualized. Spleen: Spleen is normal in size and homogeneous in echotexture. Aorta: Visualized aorta is normal in caliber at less than 3 cm. IMPRESSION: 1. No cholelithiasis or findings to suggest choledocholithiasis or acute cholecystitis. Dictated by: Chayo Garner M.D. on 11/07/2022 at 9:38 Approved by: Chayo Garner M.D. on 11/07/2022 at 9:41
== END ==
PROVIDERS: PCP Family Medicine; Referring Provider Registered Nurse; Visit Provider Registered Nurse
DX: R10.11 Right upper quadrant pain (principal); Z13.6 Encounter for screening for cardiovascular disorders; I25.10 Atherosclerotic heart disease of native coronary artery without angina pectoris
CPT/HCPCS: 76705

== ENCOUNTER 2023-07-28 10:11 | Emergency (ER) | payer MEDICARE, OTHER, SELFPAY ==
[2023-07-28] VITALS (8 sets, daily range): BP systolic 117–137; BP diastolic 67–94; PULSE 86–158; RESP 20–28; TEMP 36.4; O2SAT 97–98; BMI 29.7
--- NOTE | 2023-07-28 10:31 | DI.RAD.S_ITS ---
PROCEDURE: XR CHEST 1V INDICATIONS: chest pain TECHNIQUE: One view of the chest was acquired. COMPARISON: [facility], CT, CT CHEST W CON, 12/16/2020, 12:55. [facility], CR, XR CHEST 2V, 11/15/2020, 10:06. FINDINGS: Surgical changes and devices: None. Lungs and pleura: Low lung volumes are noted. This causes a crowded appearance to the lung markings and limits evaluation. Mild generalized interstitial prominence can be seen. No pneumothorax or large pleural effusion can be seen. Mediastinum: Mediastinal contours appear normal. Heart size is mildly enlarged. Bones and chest wall: No suspicious bony lesions. Overlying soft tissues appear unremarkable. IMPRESSION: Mild cardiomegaly with interstitial prominence. Please consider mild/early CHF. Dictated by: Sam Mccauley M.D. on 07/28/2023 at 10:09 Approved by: Sam Mccauley M.D. on 07/28/2023 at 10:13
--- NOTE | 2023-07-28 10:42 | ED_ITS ---
HPI - Arrhythmia/Palpitations General Chief Complaint: Arrhythmia/Palpitations Stated Complaint: fast heart rate/ states erratic beat Time Seen by Provider: 07/28/23 10:18 History of Present Illness HPI narrative: Patient is a 73-year-old male history of paroxysmal atrial fibrillation not on anticoagulation, hypertension, presents today with an elevated heart rate. He checks his blood pressure and heart rate every day and keeps a log of it. It appears that on July 26 he had a heart rate of 61 on July 27 he had a heart rate of 132. He reports that he has no symptoms. He has no palpitations dizziness lightheadedness shortness of breath or any other symptoms. He is called his provider's office yesterday for an appointment but can not get him until Sunday. Today he woke up in his heart rate continued to be elevated so he came to the ED. it sounds as though he was being followed by Dr. Jansen for abnormal stress test he had a checkup with him a couple years ago and was found to be in AFib in the office. He then got a 2nd opinion by Dr. Barajas at [facility] he wore a monitor he remained in a sinus rhythm he is not on any medications for atrial fibrillation this time. Related Data Previous Rx's Medication Instructions Recorded apixaban 5 mg tablet (Eliquis) 5 mg PO BID #60 tabs 07/28/23 apixaban 5 mg tablet (Eliquis) 5 mg PO BID #60 tabs 07/28/23 metoprolol succinate 25 mg 25 mg PO BID #60 tabs 07/28/23 tablet,extended release 24 hr metoprolol succinate 25 mg 25 mg PO BID #60 tabs 07/28/23 tablet,extended release 24 hr Allergies Allergy/AdvReac Type Severity Reaction Status Date / Time Sulfa (Sulfonamide Allergy Severe RASH Verified 08/21/19 13:15 Antibiotics) [SULFA (SULFONAMIDE ANTIBIOTICS)] Patient History Medical History (Updated 07/28/23 @ 13:09 by Dee Kuhn DO) Lichen planus Kidney stones (~2000) Colon polyp Hyperlipidemia Family History Sister Age: 84 Breast cancer, stage 0 Brother No problems noted. Father No problems noted. Mother No problems noted. Social History household members: spouse Smoking Status: Never smoker alcohol intake: current Smoking Status: Never smoker alcohol intake frequency: 0-2 drinks per day Substance Use Type: does not use Exam Initial Vital Signs Initial Vital Signs: Vital Signs Temperature 97.6 F 07/28/23 10:26 Pulse Rate 158 H 07/28/23 10:26 Respiratory Rate 20 07/28/23 10:26 Blood Pressure 135/94 H 07/28/23 10:26 Pulse Oximetry 97 07/28/23 10:26 Oxygen Delivery Method Room Air 07/28/23 10:26 GENERAL: Alert pleasant 73-year-old and in no acute distress. HEENT: Head atraumatic,EOMI, pupils reactive, face symmetric, moist mucous membranes CARDIOVASCULAR: Irregularly irregular no murmur RESPIRATORY: Breath sounds equal bilaterally, no wheezes rales or rhonchi. ABDOMEN: Soft, nontender. Normoactive bowel sounds all 4 quadrants. No guarding or rebound. : No CVA tenderness EXTREMITIES: Normal range of motion, no clubbing or edema. Neurovascularly intact NEUROLOGICAL: Alert and oriented x4.Normal gait and speech. SKIN: Warm, dry, no laceration, no petechiae, no rashes or lesions. Course Orders Ordered: Discontinued Medications Apixaban (Apixaban 5 Mg Tablet) 5 mg PO NOW ONE Stop: 07/28/23 12:39 Last Admin: 07/28/23 13:25 Dose: 5 mg Documented By: RADHA Diltiazem HCl (Diltiazem 5 Mg/Ml Sdv) 10 mg IV NOW ONE Stop: 07/28/23 10:43 Last Admin: 07/28/23 10:46 Dose: 10 mg Documented By: NAYA Metoprolol Succinate (Metoprolol Er 25 Mg Tablet) 25 mg PO NOW ONE Stop: 07/28/23 12:39 Last Admin: 07/28/23 13:25 Dose: 25 mg Documented By: KF Vital Signs Vital signs: Vital Signs - 8 hr 07/28/23 11:51 07/28/23 12:00 07/28/23 12:00 Pulse Rate 104 H 86 Respiratory Rate 27 H 28 H Blood Pressure 126/86 120/71 Pulse Oximetry 98 97 07/28/23 12:30 07/28/23 12:30 07/28/23 13:00 Pulse Rate 92 H 89 Respiratory Rate 27 H 24 Blood Pressure 117/68 Pulse Oximetry 97 97 07/28/23 13:00 07/28/23 13:25 07/28/23 13:30 Pulse Rate 115 H Respiratory Rate Blood Pressure 123/71 128/73 Pulse Oximetry 07/28/23 13:30 Pulse Rate 100 H Respiratory Rate 22 Blood Pressure Pulse Oximetry 98 MDM - Arrhythmia/Palpitations Lab Data 07/28/23 10:22 07/28/23 10:22 Labs: Lab Results 07/28/23 Range/Units 10:22 WBC 7.0 (4.5-11.0) X10^3/uL RBC 5.46 (4.5-5.9) X10^6/uL Hgb 16.1 (13.5-17.5) g/dL Hct 48.4 (41-53) % MCV 88.6 (80-100) fL MCH 29.5 (26-34) PG MCHC 33.2 (30-36) % RDW 14.3 (11.6-14.8) % Plt Count 215 (150-400) X10^3/uL Neut % (Auto) 53.3 (50-75) % Lymph % (Auto) 35.6 (25-40) % Ford % (Auto) 7.3 (3-14) % Eos % (Auto) 2.7 (2-4) % Baso % (Auto) 1.1 (0-2) % Neut # (Auto) 3700 (9792-5057) /uL Lymph # (Auto) 2500 (9025-0457) /uL Ford # (Auto) 500 (0-900) /uL Eos # (Auto) 200 (0-450) /uL Baso # (Auto) 100 (0-100) /uL PT 11.5 (9.4-12.5) SECONDS INR 1.0 (0.9-1.3) APTT 34 (25.1-36.5) SECONDS Sodium 140 (137-145) mmol/L Potassium 4.2 (3.4-5.1) mmol/L Chloride 107 (98-107) mmol/L Carbon Dioxide 25 (22-32) mmol/L BUN 11 (9-20) mg/dL Creatinine 0.64 L (0.66-1.25) mg/dL Estimated GFR > 60 (>60) mL/min BUN/Creatinine Ratio 17.2 (6-22) Glucose 158 H (80-110) mg/dL Calcium 9.7 (8.4-10.2) mg/dL Magnesium 2.0 (1.6-2.3) mg/dL Total Bilirubin 0.7 (0.2-1.3) mg/dL AST 26 (17-59) IU/L ALT 19 (<50) IU/L Alkaline Phosphatase 80 (38-126) U/L Total Creatine Kinase 70 (55-170) U/L Troponin I < 0.012 (0.01-0.034) ng/mL NT-Pro-B Natriuret Pep 2930 H (<125) pg/mL Total Protein 7.6 (6.3-8.2) g/dL Albumin 4.2 (3.5-5.0) g/dL Globulin 3.4 (1.7-4.1) g/dL Albumin/Globulin Ratio 1.2 (1.0-2.8) Lipase 39 (23-300) U/L TSH 1.60 (0.47-4.68) uIU/mL Imaging Data Chest x-ray: Radiologist's Impresson: PROCEDURE: XR CHEST 1V INDICATIONS: chest pain TECHNIQUE: One view of the chest was acquired. COMPARISON: [facility], CT, CT CHEST W CON, 12/16/2020, 12:55. [facility], CR, XR CHEST 2V, 11/15/2020, 10:06. FINDINGS: Surgical changes and devices: None. Lungs and pleura: Low lung volumes are noted. This causes a crowded appearance to the lung markings and limits evaluation. Mild generalized interstitial prominence can be seen. No pneumothorax or large pleural effusion can be seen. Mediastinum: Mediastinal contours appear normal. Heart size is mildly enlarged. Bones and chest wall: No suspicious bony lesions. Overlying soft tissues appear unremarkable. IMPRESSION: Mild cardiomegaly with interstitial prominence. Please consider mild/early CHF. Dictated by: Sam Mccauley M.D. on 07/28/2023 at 10:09 ECG Data Interpretation: EKG 1. Atrial fibrillation rate [address] changes no priors to compare EKG 2. Rate 93 atrial fibrillation MDM Narrative Medical decision making narrative: Patient is 73-year-old male with remote history of paroxysmal atrial fibrillation not on anticoagulation presenting today with AFib with a RVR. Heart rate initially in the 150s he is relatively asymptomatic. He takes blood pressure and heart rate daily on July 26 was when he had last known normal vitals yesterday morning he had an elevated heart rate in the 130s presumed to be atrial fibrillation and today again. I suspect that patient has been in AFib with RVR for greater than 48 hours not on anticoagulation not making him a candidate for cardioversion. Blood work has been reviewed: He has a negative troponin BNP elevated 2930 but no obvious signs of fluid overload Chest x-ray reviewed cardiomegaly with early congestive heart failure 12:30Dr. Memetry cardiology updated patient's symptoms test results. Recommends metoprolol if we do not know what his EF is but if rate is controlled can get started on Eliquis and follow-up outpatient recommends holding amlodipine. Patient updated on cardiology recommendation risk of stroke and need to take Eliquis. Discussed risks and benefits with him of taking anticoagulation. He has no contraindication for anticoagulation. ANAYELI<sub>2</sub>DS<sub>2</sub>-VASc Score for Atrial Fibrillation Stroke Risk from [email or web address] on 07/28/2023 All calculations should be rechecked by clinician prior to use RESULT SUMMARY: 2 points Stroke risk was 2.2% per year in >90,000 patients (the [place] Atrial Fibrillation Cohort Study) and 2.9% risk of stroke/TIA/systemic embolism. One recommendation suggests a 0 score for men or 1 score for women (no clinical risk factors) is ?low? risk and may not require anticoagulation; a 1 score for men or 2 score for women is ?low-moderate? risk and should consider antiplatelet or anticoagulation; and a score >= for men or >= for women is ?moderate-high? risk and should otherwise be an anticoagulation candidate. INPUTS: Age ?> 1 = 65-74 Sex ?> 0 = Male CHF history ?> 0 = No Hypertension history ?> 1 = Yes Stroke/TIA/thromboembolism history ?> 0 = No Vascular disease history (prior [place], peripheral artery disease, or aortic plaque) ?> 0 = No Diabetes history ?> 0 = No Discharge Plan Departure Patient Disposition: Home Clinical Impression: Paroxysmal atrial fibrillation Instructions: DI for Atrial Fibrillation Activity Restrictions/Additional Instructions: *You have been diagnosed with paroxysmal atrial fibrillation *What to do: At this time you definitely to follow up with your evening anchor. You do need to take a blood thinner called Eliquis. Avoid high-risk activities if you should fall it injury or head return to emergency department. *Continue to take medications as directed Eliquis 5 mg twice a day Metoprolol 25 mg twice daily Stop taking amlodipine *Follow up with your primary care provider in 2-3 days or call [phone] *Return to ER if you should have head injury rectal bleeding heart rate greater than 120 dizziness lightheadedness shortness of breath [or] any new, worsening or concerning symptoms Prescriptions: New Eliquis 5 mg tablet 5 mg PO BID Qty: 60 0RF metoprolol succinate 25 mg tablet extended release 24 hr 25 mg PO BID Qty: 60 0RF Eliquis 5 mg tablet 5 mg PO BID Qty: 60 0RF metoprolol succinate 25 mg tablet extended release 24 hr 25 mg PO BID Qty: 60 0RF Referrals: José Askew MD [Primary Care Provider] - Stanley Ambriz DO [Non-Staff] - Stand Alone Forms: Patient Portal/API
[2023-07-28] MEDS: dilTIAZem 5 MG/ML SDV 10 MG IV (10:46)
[2023-07-28 10:57] LABS: Add Manual Diff / Slide Review NO; Basophils Absolute Auto 100 /uL (0-100); Basophils Percent Auto 1.1 % (0-2); Eosinophils Absolute Auto 200 /uL (0-450); Eosinophils Percent Auto 2.7 % (2-4); Hematocrit 48.4 % (41-53); Hemoglobin 16.1 g/dL (13.5-17.5); Lymphocytes Absolute Auto 2500 /uL (1100-4500); Lymphocytes Percent Auto 35.6 % (25-40); Mean Corpuscular HGB Conc 33.2 % (30-36); Mean Corpuscular Hemoglobin 29.5 PG (26-34); Mean Corpuscular Volume 88.6 fL (80-100); Monocytes Absolute Auto 500 /uL (0-900); Monocytes Percent Auto 7.3 % (3-14); Neutrophils Absolute Auto 3700 /uL (1500-7000); Neutrophils Percent Auto 53.3 % (50-75); Platelet Count 215 X10^3/uL (150-400); Red Blood Cell Count 5.46 X10^6/uL (4.5-5.9); Red Cell Distribution Width 14.3 % (11.6-14.8)
[2023-07-28 11:04] LABS: Prothrombin Time 11.5 SECONDS (9.4-12.5)
[2023-07-28 11:07] LABS: PTT Partial Thromboplastin Tim 34 SECONDS (25.1-36.5)
[2023-07-28 11:20] LABS: Alanine Aminotransferase 19 IU/L (<50); Albumin 4.2 g/dL (3.5-5.0); Albumin Globulin Ratio 1.2 (1.0-2.8); Alkaline Phosphatase 80 U/L (38-126); Aspartate Aminotransferase 26 IU/L (17-59); BUN Creatinine Ratio 17.2 (6-22); Bilirubin Total 0.7 mg/dL (0.2-1.3); Blood Urea Nitrogen 11 mg/dL (9-20); Calcium 9.7 mg/dL (8.4-10.2); Carbon Dioxide 25 mmol/L (22-32); Chloride 107 mmol/L (98-107); Creatine Kinase 70 U/L (55-170); Estimated Glomerular Filt Rate > 60 mL/min (>60); Globulin 3.4 g/dL (1.7-4.1); Glucose 158 mg/dL (80-110); HEMOLYSIS < 15 (0-50); Lipase 39 U/L (23-300); Potassium 4.2 mmol/L (3.4-5.1); Sodium 140 mmol/L (137-145); Total Protein 7.6 g/dL (6.3-8.2)
[2023-07-28 11:46] LABS: NT-proBNP (BNP-Adult 18+) 2930 pg/mL (<125)
[2023-07-28 11:49] LABS: Troponin I < 0.012 ng/mL (0.01-0.034)
[2023-07-28] MEDS: METOPROLOL ER 25 MG TABLET PO (13:25)
[2023-07-28] MEDS: APIXABAN 5 MG TABLET PO (13:25)
== END 2023-07-28 13:54 | disposition home or self-care (01) ==
PROVIDERS: Emergency Provider Emergency Medicine; PCP Family Medicine
DX: I48.0 Paroxysmal atrial fibrillation (principal); R07.9 Chest pain, unspecified
CPT/HCPCS: 36415; 71045; 80053; 82550; 83690; 83735; 83880; 84443; 84484; 85025; 85610; 85730; 93005; 93010; 96374; 99284

== ENCOUNTER → 2023-11-27 10:26 | Outpatient (CLI) | payer MEDICARE, OTHER, SELFPAY ==
[2023-11-27 12:53] LABS: TSH w/ Reflex to FT4 1.11 uIU/mL (0.47-4.68)
== END ==
LOC: LAB 10:27
PROVIDERS: PCP Family Medicine; Referring Provider Internal Medicine Cardiovascular Disease; Visit Provider Internal Medicine Cardiovascular Disease
DX: I48.19 Other persistent atrial fibrillation (principal)
CPT/HCPCS: 36415; 84443

== ENCOUNTER → 2024-09-05 08:26 | Outpatient (CLI) | payer MEDICARE, OTHER, SELFPAY ==
[2024-09-05 10:33] LABS: BUN Creatinine Ratio 15.6 (6-22); Blood Urea Nitrogen 15 mg/dL (9-20); Carbon Dioxide 25 mmol/L (22-32); Chloride 105 mmol/L (98-107); Estimated Glomerular Filt Rate > 60 mL/min (>60); Glucose 142 mg/dL (80-110); HEMOLYSIS < 15 (0-50); Magnesium 1.8 mg/dL (1.6-2.3); Potassium 4.5 mmol/L (3.4-5.1); Sodium 138 mmol/L (137-145)
== END ==
LOC: LAB 08:30
PROVIDERS: PCP Family Medicine; Referring Provider Nurse Practitioner; Visit Provider Nurse Practitioner
DX: I48.0 Paroxysmal atrial fibrillation (principal); Z51.81 Encounter for therapeutic drug level monitoring; Z79.899 Other long term (current) drug therapy
CPT/HCPCS: 36415; 80048; 83735

== ENCOUNTER → 2024-11-12 07:09 | Outpatient (CLI) | payer MEDICARE, OTHER, SELFPAY ==
[2024-11-12 08:00] LABS: BUN Creatinine Ratio 22.6 (6-22); Blood Urea Nitrogen 14 mg/dL (9-20); Calcium 9.4 mg/dL (8.4-10.2); Carbon Dioxide 21 mmol/L (22-32); Chloride 107 mmol/L (98-107); Estimated Glomerular Filt Rate > 60 mL/min (>60); Glucose 150 mg/dL (70-99); HEMOLYSIS < 15 (0-50); Magnesium 1.8 mg/dL (1.6-2.3); Potassium 4.3 mmol/L (3.4-5.1); Sodium 135 mmol/L (137-145)
== END ==
PROVIDERS: PCP Family Medicine; Referring Provider Nurse Practitioner; Visit Provider Nurse Practitioner
DX: I48.0 Paroxysmal atrial fibrillation (principal); Z51.81 Encounter for therapeutic drug level monitoring; Z79.899 Other long term (current) drug therapy
CPT/HCPCS: 36415; 80048; 83735

== ENCOUNTER → 2025-02-25 07:26 | Outpatient (CLI) | payer MEDICARE, OTHER, SELFPAY ==
[2025-02-25 08:35] LABS: Blood Urea Nitrogen 12 mg/dL (9-20); Calcium 9.2 mg/dL (8.4-10.2); Carbon Dioxide 22 mmol/L (22-32); Chloride 106 mmol/L (98-107); Estimated Glomerular Filt Rate > 60 mL/min (>60); Glucose 165 mg/dL (70-99); HEMOLYSIS < 15 (0-50); Magnesium 1.8 mg/dL (1.6-2.3); Potassium 4.0 mmol/L (3.4-5.1); Sodium 136 mmol/L (137-145)
== END ==
PROVIDERS: PCP Family Medicine; Referring Provider Internal Medicine Cardiovascular Disease; Visit Provider Internal Medicine Cardiovascular Disease
DX: Z79.899 Other long term (current) drug therapy (principal); Z51.81 Encounter for therapeutic drug level monitoring
CPT/HCPCS: 36415; 80048; 83735

== ENCOUNTER 2025-03-25 17:23 | Emergency (ER) | payer MEDICARE, OTHER, SELFPAY ==
[2025-03-25] VITALS (14 sets, daily range): BP systolic 150–196; BP diastolic 71–87; PULSE 47–57; RESP 14–24; TEMP 36.8; O2SAT 94–97; BMI 27.3
--- NOTE | 2025-03-25 17:30 | DI.RAD.S_ITS ---
PROCEDURE: XR CHEST 1V INDICATIONS: Chest Pain TECHNIQUE: One view of the chest was acquired. COMPARISON: [facility], CR, XR CHEST 1V, 07/28/2023, 10:42. FINDINGS: Surgical changes and devices: None. Lungs and pleura: Chronic fibrotic changes. No superimposed acute consolidation. No pleural effusions or pneumothorax. Mediastinum: Mediastinal contours appear normal. Heart size is normal. Bones and chest wall: No suspicious bony lesions. Overlying soft tissues appear unremarkable. IMPRESSION: No acute cardiopulmonary abnormality is seen. Dictated by: Donnie Carmona M.D. on 03/25/2025 at 18:25 Approved by: Donnie Carmona M.D. on 03/25/2025 at 18:26
--- NOTE | 2025-03-25 17:30 | EKG_ITS ---
[address] [place] [address] Test Date: 2025-03-25 Pat Name: Mau Laguna Department: Room: Gender: Male Rental Representative: HAJA : 1950 Requested By: Order Number: [id number] Reading MD: Eduardo Gonzales MD Measurements Intervals [place] Rate: 51 P: 52 CO: 168 QRS: 5 QRSD: 98 T: 20 QT: 442 QTc: 407 Interpretive Statements Sinus bradycardia Electronically Signed On 03-26-2025 7:20:52 PDT by Eduardo Gonzales MD
[2025-03-25 18:21] LABS: Add Manual Diff / Slide Review NO; Hematocrit 38.8 % (41-53); Hemoglobin 13.2 g/dL (13.5-17.5); Lymphocytes Absolute Auto 1400 /uL (1100-4500); Mean Corpuscular HGB Conc 34.1 % (30-36); Mean Corpuscular Hemoglobin 31.0 PG (26-34); Mean Corpuscular Volume 90.9 fL (80-100); Platelet Count 138 X10^3/uL (150-400)
[2025-03-25 18:27] LABS: INR 1.3 (0.9-1.3); Prothrombin Time 14.4 SECONDS (9.4-12.5)
[2025-03-25 18:30] LABS: PTT Partial Thromboplastin Tim 30 SECONDS (25.1-36.5)
[2025-03-25 18:32] LABS: Alanine Aminotransferase 364 IU/L (<50); Albumin 4.0 g/dL (3.5-5.0); Albumin Globulin Ratio 1.3 (1.0-2.8); Alkaline Phosphatase 510 U/L (38-126); Blood Urea Nitrogen 14 mg/dL (9-20); Calcium 9.5 mg/dL (8.4-10.2); Carbon Dioxide 23 mmol/L (22-32); Chloride 105 mmol/L (98-107); Creatine Kinase 77 U/L (55-170); Estimated Glomerular Filt Rate > 60 mL/min (>60); Globulin 3.2 g/dL (1.7-4.1); Glucose 126 mg/dL (70-99); HEMOLYSIS < 15 (0-50); Lipase 72 U/L (23-300); Magnesium 1.8 mg/dL (1.6-2.3); Potassium 3.6 mmol/L (3.4-5.1); Sodium 135 mmol/L (137-145); Total Protein 7.2 g/dL (6.3-8.2)
[2025-03-25 18:43] LABS: NT-proBNP (BNP-Adult 18+) 481 pg/mL (<450); Troponin I 0.016 ng/mL (0.01-0.034)
--- NOTE | 2025-03-25 19:14 | ED.GENADULT ---
HPI - General Adult General Chief complaint: Abdominal Pain Stated complaint: abd pain/chest pain pcp ref Time Seen by Provider: 03/25/25 19:12 Source: patient, RN notes reviewed and old records reviewed Mode of arrival: Ambulatory Limitations: no limitations History of Present Illness HPI narrative: 75-year-old male history of atrial fibrillation with prior ablation on Eliquis, Tikosyn, metoprolol, losartan recently stopped his rosuvastatin. With a complaint of upper abdominal pain for several months. Patient states has been in the right upper quadrant that has been pretty persistent does not really go away he does not appreciate that anything makes it worse or better. His notes recently she has noticed his sclera has been a little bit more yellow they have not appreciated any jaundice. He denies fevers. No nausea or vomiting. He does sometimes get reflux. 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 He states they have not been white or rodolfo-colored. He noticed his urine has been dark for the past several weeks. Patient states he has seen Gastroenterology he has never had an EGD or had any imaging of his right upper quadrant. Saw his primary care on Sunday who told him to come to the emergency department for workup. Patient states he has had prior bilateral knee replacement he has had ablation in his heart no other cardiac interventions. No tobacco, he states occasional alcohol, no recreational drugs. States he occasionally has Tylenol but not regularly. Related Data Previous Rx's ?Medication ?Instructions ?Recorded apixaban 5 mg tablet (Eliquis) 5 mg PO BID #60 tabs 07/28/23 apixaban 5 mg tablet (Eliquis) 5 mg PO BID #60 tabs 07/28/23 metoprolol succinate 25 mg 25 mg PO BID #60 tabs 07/28/23 tablet,extended release 24 hr metoprolol succinate 25 mg 25 mg PO BID #60 tabs 07/28/23 tablet,extended release 24 hr Allergies Allergy/AdvReac Type Severity Reaction Status Date / Time Sulfa (Sulfonamide Allergy Severe RASH Verified 03/25/25 17:45 Antibiotics) (SULFA (SULFONAMIDE ANTIBIOTICS)) Review of Systems Review of Systems ROS Unobtainable: All systems reviewed & are unremarkable except as noted in HPI and below Patient History Medical History (Updated 03/25/25 @ 22:28 by Jossy Lawrence DO) Lichen planus Kidney stones (~2000) Colon polyp Hyperlipidemia Family History Sister Age: 86 Breast cancer, stage 0 Brother No problems noted. Father No problems noted. Mother No problems noted. Social History household members: spouse Smoking Status: Unknown if ever smoked alcohol intake: current Smoking Status: Unknown if ever smoked alcohol intake frequency: 0-2 drinks per day Exam Narrative Exam Narrative: GENERAL: Alert and oriented x three, male in mild distress, jaundice, HEENT: Head normocephalic, atraumatic, EOMI, pupils reactive, scleral icterus, face symmetric, moist mucous membranes NECK: Supple, full range of motion CARDIOVASCULAR: Regular rate and rhythm without murmurs, rubs or gallops. RESPIRATORY: Breath sounds equal bilaterally, no wheezes rales or rhonchi. ABDOMEN: Soft, nontender. Nondistended. Normoactive bowel sounds all 4 quadrants. No guarding or rebound, rigidity, no mass : No CVA tenderness EXTREMITIES: Normal range of motion, no clubbing or edema. Neurovascularly intact NEUROLOGICAL: Cranial nerves II through XII grossly intact. Moving all extremities SKIN: Warm, dry, no petechiae, no rashes or lesions. Initial Vital Signs Initial Vital Signs: Vital Signs Pulse Rate 54 L 03/25/25 17:40 Pulse Oximetry 96 03/25/25 17:40 Course Orders Ordered: ED Orders 03/25/25 17:30 XR chest 1V Stat EKG-12 Lead Stat 03/25/25 18:00 Complete Blood Count AUTO DIFF Stat Comprehensive Metabolic Panel Stat Lipase Stat Magnesium Stat NT-proBNP (BNP-Adult 18+) Stat PTT Partial Thromboplastin Kimani Stat Prothrombin Time INR Stat Troponin & CK Cardiac Panel Stat 03/25/25 19:22 MR Ab Pancreatic/MRCP protocol Stat 03/25/25 19:28 Urine Microscopic Stat Discontinued Medications Aspirin (Aspirin 81 Mg Chew Tab) 324 mg PO NOW ONE Stop: 03/25/25 17:31 Last Admin: 03/25/25 18:31 Dose: Not Given Documented By: SHAHIDA Vital Signs Vital signs: Vital Signs - 8 hr 03/25/25 17:40 03/25/25 17:45 03/25/25 18:00 Temperature 98.3 F Pulse Rate 54 L 55 L 49 L Respiratory Rate 14 Blood Pressure 164/72 H Pulse Oximetry 96 96 94 Oxygen Delivery Method Room Air 03/25/25 18:30 03/25/25 18:31 03/25/25 18:31 Temperature Pulse Rate 52 L 53 L Respiratory Rate Blood Pressure 150/75 H Pulse Oximetry 96 96 Oxygen Delivery Method 03/25/25 19:05 03/25/25 19:06 03/25/25 19:06 Temperature Pulse Rate 54 L 52 L Respiratory Rate 15 21 Blood Pressure 196/87 H Pulse Oximetry 97 97 Oxygen Delivery Method 03/25/25 19:30 03/25/25 19:31 03/25/25 19:31 Temperature Pulse Rate 47 L 48 L Respiratory Rate 23 Blood Pressure 150/71 H Pulse Oximetry 97 97 Oxygen Delivery Method 03/25/25 20:51 03/25/25 20:52 03/25/25 20:52 Temperature Pulse Rate 57 L 54 L Respiratory Rate 24 Blood Pressure 162/74 H Pulse Oximetry 97 Oxygen Delivery Method 03/25/25 21:00 03/25/25 21:30 03/25/25 22:36 Temperature Pulse Rate 55 L 49 L Respiratory Rate Blood Pressure 167/79 H Pulse Oximetry 97 96 Oxygen Delivery Method 03/25/25 22:36 Temperature Pulse Rate Respiratory Rate Blood Pressure Pulse Oximetry 97 Oxygen Delivery Method Room Air Medical Decision Making Lab Data 03/25/25 18:00 03/25/25 18:00 Labs: Lab Results 03/25/25 03/25/25 Range/Units 18:00 19:28 WBC 5.2 (4.5-11.0) X10^3/uL RBC 4.27 L (4.5-5.9) X10^6/uL Hgb 13.2 L (13.5-17.5) g/dL Hct 38.8 L (41-53) % MCV 90.9 (80-100) fL MCH 31.0 (26-34) PG MCHC 34.1 (30-36) % RDW 14.5 (11.6-14.8) % Plt Count 138 L (150-400) X10^3/uL Neut % (Auto) 56.5 (50-75) % Lymph % (Auto) 27.0 (25-40) % Guthrie % (Auto) 11.7 (3-14) % Eos % (Auto) 3.7 (2-4) % Baso % (Auto) 1.1 (0-2) % Neut # (Auto) 2900 (2306-8861) /uL Lymph # (Auto) 1400 (2658-4174) /uL Guthrie # (Auto) 600 (0-900) /uL Eos # (Auto) 200 (0-450) /uL Baso # (Auto) 100 (0-100) /uL PT 14.4 H (9.4-12.5) SECONDS INR 1.3 (0.9-1.3) APTT 30 (25.1-36.5) SECONDS Sodium 135 L (137-145) mmol/L Potassium 3.6 (3.4-5.1) mmol/L Chloride 105 (98-107) mmol/L Carbon Dioxide 23 (22-32) mmol/L BUN 14 (9-20) mg/dL Creatinine 0.65 L (0.66-1.25) mg/dL Estimated GFR > 60 (>60) mL/min BUN/Creatinine Ratio 21.5 (6-22) Glucose 126 H (70-99) mg/dL Calcium 9.5 (8.4-10.2) mg/dL Magnesium 1.8 (1.6-2.3) mg/dL Total Bilirubin 4.8 H (0.2-1.3) mg/dL AST 236 H (17-59) IU/L ALT 364 H (<50) IU/L Alkaline Phosphatase 510 H (38-126) U/L Total Creatine Kinase 77 (55-170) U/L Troponin I 0.016 (0.01-0.034) ng/mL NT-Pro-B Natriuret Pep 481 H (<450) pg/mL Total Protein 7.2 (6.3-8.2) g/dL Albumin 4.0 (3.5-5.0) g/dL Globulin 3.2 (1.7-4.1) g/dL Albumin/Globulin Ratio 1.3 (1.0-2.8) Lipase 72 (23-300) U/L Urine RBC None seen (0-5/HPF) Urine WBC None seen (0-5/HPF) Ur Squamous Epith Cells None seen (0-5/HPF) Calcium Oxalate Crystal Many H Urine Bacteria Occasional (0-1) (None) Ur Culture Indicated? Cult not indicated Vol Urine Centrifuged 10ml (spun) Urine Dip Bedside Urine Glucose Negative Bedside Urine Bilirubin + 1 Bedside Urine Ketone - Negative Urine Specific [place] 1.025 Bedside Urine Occult Blood + Bedside Urine pH 6.0 Bedside Urine Protein - Negative Bedside Urine Urobilinogen - Negative Bedside Urine Nitrite - Negative Bedside Urine Leukocytes - Negative Esterase Point of care testing: Urine Dip Bedside Urine Glucose Negative Bedside Urine Bilirubin + 1 Bedside Urine Ketone - Negative Urine Specific [place] 1.025 Bedside Urine Occult Blood + Bedside Urine pH 6.0 Bedside Urine Protein - Negative Bedside Urine Urobilinogen - Negative Bedside Urine Nitrite - Negative Bedside Urine Leukocytes - Negative Esterase MDM Narrative Medical decision making narrative: White count of 5.2 hemoglobin of 13.2 platelets of 138. INR is 1.3, PTT is 30. Sodium is 135 electrolytes BUN creatinine are appropriate glucose is 126, bilirubin is 4.8 with a AST of 236 ALT of 364 alk-phos of 510 lipase is 72 BNP is 41 with a troponin 0.016. Chest x-ray is negative. MRCP pancreatic mass with a biliary obstruction patient has a solid and cystic mass in the body which abuts systemic constricts a portal vein measuring 4.5 x 3.1 x 5.6 cm. Patient has a intrahepatic biliary ductal dilation and common bile ductal dilation common bile duct measures 1.4 cm abruptly narrows is interested the pancreas. Gallbladder is distended no gallstones or wall thickening. Patient has some small hepatic cysts. Discussed with the patient we would like to try to obtain MRCP as I suspect he likely has some form of biliary obstruction he has had months of symptoms which has been slowly worsening he appears jaundiced has had a chronic right upper quadrant pain but never had imaging of the area with a an elevation in his bilirubin, AST ALT alk-phos lipase is normal. He denies any regular alcohol use. Spoke with Gastroenterology at [facility], Dr. Brown at [phone] discussed patient's findings today he is very stable they are happy to see the patient feel it they can see him as an outpatient urgently as per referral to be sent. Spoke [facility] Dr. Salcido, covering for Dr. Askew @ [phone]. He will relay so that they can start the referral process for the patient to see Gastroenterology. Discussed findings with the patient we will have them call the office 1st thing in the morning to set up follow up with primary care as well as Gastroenterology. They expressed their understanding they will call the office 1st thing in the morning. Discussed return precautions signs and symptoms to watch for. Discharge Plan Departure Patient Disposition: Home Clinical Impression: Mass of pancreas, Biliary tract obstruction Activity Restrictions/Additional Instructions: Your workup today shows a mass in the pancreas, it does show some obstruction to the common bile duct and is pressing against the portal vein. Your labs also show elevation of your bilirubin and liver enzymes including AST, ALT and alkaline phosphatase. I spoke with Gastroenterology they would like to see you urgently for evaluation and further workup. Please call their office in the morning to set up follow up. I also reached out to your primary care team to start the process for a referral. Call your primary care physician in the morning as well. I spoke with Dr. Brown from [facility] gastroenterology. Their office number is [phone]. They have offices in [facility]. Continue your home medications as prescribed. Return to the emergency department if you develop fevers, rapidly worsening pain, vomiting, any confusion or altered mental status, lightheadedness or passing out or other new or concerning changes Prescriptions: No Action Eliquis 5 mg tablet 5 mg PO BID Qty: 60 0RF metoprolol succinate 25 mg tablet extended release 24 hr 25 mg PO BID Qty: 60 0RF Eliquis 5 mg tablet 5 mg PO BID Qty: 60 0RF metoprolol succinate 25 mg tablet extended release 24 hr 25 mg PO BID Qty: 60 0RF Referrals: Roberto Brown MD [Non-Staff, Medical] José Askew MD [Primary Care Provider, Family Practice] Stand Alone Forms: Patient Portal/API
--- NOTE | 2025-03-25 19:22 | DI.MRI.S_ITS ---
PROCEDURE: MR AB PANCREATIC/MRCP PROTOCOL INDICATIONS: elevated bili,jaundice, dark urine RUQ pain for months. TECHNIQUE: Coronal HASTE through the abdomen, axial 2-D FLASH in- and [id number], and breath-hold T2 FSE with fat saturation through the biliary system and pancreas. Oblique coronal and axial thin-slice HASTE, radial thick-slab HASTE centered on the extrahepatic bile ducts. Intravenous secretin: Not requested. COMPARISON: [facility], CT, CT HIGH RESOLUTION CHEST, 01/30/2024, 9:09. FINDINGS: Image quality: Diagnostic. Gallbladder: No gallstones or wall thickening. Distended. Biliary ducts: Intrahepatic biliary duct dilation and common bile duct dilation. Common bile duct measures 1.4 cm and abruptly narrows as it enters the pancreas. Pancreas: Mixed solid and cystic mass at the body which abuts the stomach and constricts the portal vein this measures approximately 4.5 by 3.1 x 5.6 cm. . OTHER: Lung bases: Unremarkable. Liver: No solid mass. Small hepatic cysts. Spleen: Size is within normal limits. Adrenal Glands: No adrenal nodules. Kidneys and Ureters: No hydronephrosis. No solid mass. No complex renal cystic lesion which requires follow up. Simple renal cyst in the left kidney upper pole measuring 6.6 cm. Stomach and Bowel: Normal colonic caliber, without significant wall thickening. Peritoneum: No abnormal intraperitoneal fluid. No free air. Ventral Wall: No hernia. Abdominal Nodes: No retroperitoneal or mesenteric adenopathy by size criteria. Vessels: Aorta and inferior vena cava are normal in size. Bones: No aggressive osseous abnormality. IMPRESSION: Pancreatic mass with biliary obstruction. Dictated by: Donnie Carmona M.D. on 03/25/2025 at 21:07 Approved by: Donnie Carmona M.D. on 03/25/2025 at 21:29
--- NOTE | 2025-03-25 19:25 | PC.NURSE ---
PT took personal evening meds, Ok'ed by provider
[2025-03-25 20:10] LABS: Culture Indicated Urine Cult Not Indicated
== END 2025-03-25 22:55 | disposition home or self-care (01) ==
PROVIDERS: Emergency Medicine; Emergency Provider Emergency Medicine; PCP Family Medicine
DX: K83.1 Obstruction of bile duct (principal); K86.89 Other specified diseases of pancreas; Z79.01 Long term (current) use of anticoagulants; Z96.653 Presence of artificial knee joint, bilateral
CPT/HCPCS: 36415; 71045; 74183; 80053; 81003; 81015; 82550; 83690; 83735; 83880; 84484; 85025; 85610; 85730; 93005; 99283; 99284; A9579

== ENCOUNTER 2025-05-01 14:47 | Emergency (ER) | payer MEDICARE, OTHER, SELFPAY ==
[2025-05-01] VITALS (12 sets, daily range): BP systolic 137–188; BP diastolic 65–91; PULSE 85–97; RESP 18–28; TEMP 37.4–39.1; O2SAT 94–98; BMI 25.2
--- NOTE | 2025-05-01 15:47 | ED_ITS ---
HPI - General Adult General Chief complaint: Weakness Stated complaint: Headache/Weakness Time Seen by Provider: 05/01/25 15:46 Source: patient and EMS Mode of arrival: EMS History of Present Illness HPI narrative: 75-year-old gentleman with a history of coronary artery disease, currently anticoagulated, being treated for recent diagnosis pancreatic cancer recent chemotherapy, inital treatment 04/24 at ., awoke in his usual state of health this morning and was able to walk down the stairs, after lunch he was unable to even sit up while on the couch. Low-grade fevers, flushed face, significant increase in abdominal pain particularly peripancreatic. Related Data Previous Rx's ?Medication ?Instructions ?Recorded apixaban 5 mg tablet (Eliquis) 5 mg PO BID #60 tabs apixaban 5 mg tablet (Eliquis) 5 mg PO BID #60 tabs metoprolol succinate 25 mg 25 mg PO BID #60 tabs 07/28 tablet,extended release 24 hr metoprolol succinate 25 mg 25 mg PO BID #60 tabs 07/28 tablet,extended release 24 hr Allergies Allergy/AdvReac Type Severity Reaction Status Date / Time Sulfa (Sulfonamide Allergy Severe RASH Verified 05/01/25 15:13 Antibiotics) (SULFA (SULFONAMIDE ANTIBIOTICS)) Review of Systems Review of Systems Narrative: Pertinent positive and negative findings as per HPI Patient History Medical History (Updated 05/01/25 @ 23:53 by Mariana Ivey MD) Pancreatic cancer Lichen planus Kidney stones (~2000) Colon polyp Hyperlipidemia Family History Sister Age: 86 Breast cancer, stage 0 Brother No problems noted. Father No problems noted. Mother No problems noted. Social History household members: spouse Smoking Status: Current every day smoker alcohol intake: current Smoking Status: Current every day smoker alcohol intake frequency: 0-2 drinks per day Exam Initial Vital Signs Initial Vital Signs: Vital Signs Temperature 99.3 F 05/01/25 15:13 Pulse Rate 89 05/01/25 15:13 Respiratory Rate 18 05/01/25 15:13 Blood Pressure 139/72 05/01/25 15:13 Pulse Oximetry 98 05/01/25 15:13 Oxygen Delivery Method Room Air 05/01/25 15:13 General: Older-appearing, flushed appears unwell but not acutely toxic HEENT: Moist mucous membranes, normal sclera with reactive pupils, Respiratory: Lungs are clear to auscultation, no wheezing no rales no rhonchi. Full and symmetrical air movement Cardiac: Regular rate and rhythm no murmurs no bruits Abdomen: Significant tenderness to the point of guarding in the left upper quadrant. Skin: Warm and dry, no rashes Neurologic: Globally weak but otherwise Grossly neurologically intact with no obvious asymmetries or abnormalities Extremities: No trauma, well perfused Psych: Cooperative, appropriate insight and affect Course Orders Ordered: ED Orders 05/01/25 16:40 CT abdomen pelvis w con Stat 05/01/25 17:00 Urinalysis and Microscopic Stat 05/01/25 17:53 Lactate (Lactic Acid) Stat 05/01/25 18:00 Blood Culture Stat Discontinued Medications Sodium Chloride (Normal Saline 0.9%) 1,000 mls @ 1,000 mls/hr IV BOLUS ONE Stop: 05/01/25 17:38 Last Infusion: 05/01/25 18:12 Dose: Infused Documented By: Admin: 05/01/25 17:11 Dose: 1,000 mls/hr Documented By: KEVIN Cefepime HCl 2 gm/ Sodium (Chloride) 100 mls @ 200 mls/hr IV STAT ONE Stop: 05/01/25 17:57 Last Admin: 05/01/25 18:08 Dose: 200 mls/hr Documented By: KEVIN Cefepime HCl 2 gm/ Sodium (Chloride) 100 mls @ 200 mls/hr IV NOW ONE Stop: 05/01/25 18:22 Last Admin: 05/01/25 18:40 Dose: Not Given Ketorolac Tromethamine (Ketorolac 30 Mg/Ml Vial) 15 mg IV NOW ONE Stop: 05/01/25 17:57 Last Admin: 05/01/25 17:59 Dose: 15 mg Documented By: KEVIN Vital Signs Vital signs: Vital Signs - 8 hr 05/01/25 17:18 05/01/25 17:19 05/01/25 17:19 Temperature Pulse Rate 87 87 Respiratory Rate Blood Pressure 183/86 H Pulse Oximetry 98 98 05/01/25 17:24 05/01/25 17:30 05/01/25 17:30 Temperature 99.8 F H Pulse Rate 85 Respiratory Rate 20 Blood Pressure 183/91 H Pulse Oximetry 97 05/01/25 17:56 05/01/25 17:59 05/01/25 18:00 Temperature 102.4 F H 102.4 F H Pulse Rate Respiratory Rate Blood Pressure 188/90 H Pulse Oximetry 05/01/25 18:00 05/01/25 18:30 05/01/25 18:30 Temperature Pulse Rate 90 92 H Respiratory Rate 27 H 28 H Blood Pressure 137/66 Pulse Oximetry 97 94 05/01/25 18:40 05/01/25 19:00 05/01/25 19:00 Temperature 100.7 F H Pulse Rate 97 H Respiratory Rate 28 H Blood Pressure 142/65 H Pulse Oximetry 94 05/01/25 19:30 05/01/25 19:30 Temperature Pulse Rate 93 H Respiratory Rate 26 H Blood Pressure 160/73 H Pulse Oximetry 94 Medical Decision Making Lab Data 05/01/25 14:50 05/01/25 14:45 Labs: Lab Results 05/01/25 05/01/25 05/01/25 Range/Units 14:45 14:50 17:00 WBC 4.8 (4.5-11.0) X10^3/uL RBC 4.07 L (4.5-5.9) X10^6/uL Hgb 12.4 L (13.5-17.5) g/dL Hct 36.8 L (41-53) % MCV 90.5 (80-100) fL MCH 30.6 (26-34) PG MCHC 33.8 (30-36) % RDW 14.9 H (11.6-14.8) % Plt Count 102 L (150-400) X10^3/uL Neut % (Auto) 67.7 (50-75) % Lymph % (Auto) 13.6 L (25-40) % Mccormick % (Auto) 17.1 H (3-14) % Eos % (Auto) 0.4 L (2-4) % Baso % (Auto) 1.2 (0-2) % Neut # (Auto) 3300 (8449-8159) /uL Lymph # (Auto) 700 L (4847-2602) /uL Mccormick # (Auto) 800 (0-900) /uL Eos # (Auto) 0 (0-450) /uL Baso # (Auto) 100 (0-100) /uL Sodium 129 L (137-145) mmol/L Potassium 4.3 (3.4-5.1) mmol/L Chloride 96 L (98-107) mmol/L Carbon Dioxide 23 (22-32) mmol/L BUN 14 (9-20) mg/dL Creatinine 0.69 (0.66-1.25) mg/dL Estimated GFR > 60 (>60) mL/min BUN/Creatinine Ratio 20.3 (6-22) Glucose 132 H (70-99) mg/dL Lactate (0.7-2.1) mmol/L Calcium 9.3 (8.4-10.2) mg/dL Magnesium 1.9 (1.6-2.3) mg/dL Total Bilirubin 0.9 (0.2-1.3) mg/dL AST 38 (17-59) IU/L ALT 33 (<50) IU/L Alkaline Phosphatase 229 H (38-126) U/L Troponin I 0.013 (0.01-0.034) ng/mL NT-Pro-B Natriuret Pep 1230 H (<450) pg/mL Total Protein 7.1 (6.3-8.2) g/dL Albumin 4.0 (3.5-5.0) g/dL Globulin 3.1 (1.7-4.1) g/dL Albumin/Globulin Ratio 1.3 (1.0-2.8) Lipase 34 (23-300) U/L Procalcitonin 0.132 (<0.5) ng/mL Urine Color Yellow Urine Appearance Clear Urine pH 6.0 (4.5-8.0) Ur Specific Amery 1.010 (1.000-1.035) Urine Protein Trace H (Negative) Urine Glucose (UA) Negative (Negative) g/dL Urine Ketones Negative (NEGATIVE) Urine Occult Blood 2+ H (Negative) Urine Nitrate Negative (Negative) Urine Bilirubin Negative (NEGATIVE) Urine Urobilinogen 0.2 (0.2) E.U./dL Ur Leukocyte Esterase Negative (NEGATIVE) Urine RBC 1-5/hpf (0-5/HPF) Urine WBC 0-1/hpf (0-5/HPF) Ur Squamous Epith Cells 0-1 /hpf (0-5/HPF) Urine Bacteria Occasional (0-1) (None) Ur Culture Indicated? Cult not indicated Vol Urine Centrifuged 10ml (spun) 05/01/25 Range/Units 17:53 WBC (4.5-11.0) X10^3/uL RBC (4.5-5.9) X10^6/uL Hgb (13.5-17.5) g/dL Hct (41-53) % MCV (80-100) fL MCH (26-34) PG MCHC (30-36) % RDW (11.6-14.8) % Plt Count (150-400) X10^3/uL Neut % (Auto) (50-75) % Lymph % (Auto) (25-40) % Mccormick % (Auto) (3-14) % Eos % (Auto) (2-4) % Baso % (Auto) (0-2) % Neut # (Auto) (3677-4174) /uL Lymph # (Auto) (4651-5531) /uL Mccormick # (Auto) (0-900) /uL Eos # (Auto) (0-450) /uL Baso # (Auto) (0-100) /uL Sodium (137-145) mmol/L Potassium (3.4-5.1) mmol/L Chloride (98-107) mmol/L Carbon Dioxide (22-32) mmol/L BUN (9-20) mg/dL Creatinine (0.66-1.25) mg/dL Estimated GFR (>60) mL/min BUN/Creatinine Ratio (6-22) Glucose (70-99) mg/dL Lactate 1.5 (0.7-2.1) mmol/L Calcium (8.4-10.2) mg/dL Magnesium (1.6-2.3) mg/dL Total Bilirubin (0.2-1.3) mg/dL AST (17-59) IU/L ALT (<50) IU/L Alkaline Phosphatase (38-126) U/L Troponin I (0.01-0.034) ng/mL NT-Pro-B Natriuret Pep (<450) pg/mL Total Protein (6.3-8.2) g/dL Albumin (3.5-5.0) g/dL Globulin (1.7-4.1) g/dL Albumin/Globulin Ratio (1.0-2.8) Lipase (23-300) U/L Procalcitonin (<0.5) ng/mL Urine Color Urine Appearance Urine pH (4.5-8.0) Ur Specific Amery (1.000-1.035) Urine Protein (Negative) Urine Glucose (UA) (Negative) g/dL Urine Ketones (NEGATIVE) Urine Occult Blood (Negative) Urine Nitrate (Negative) Urine Bilirubin (NEGATIVE) Urine Urobilinogen (0.2) E.U./dL Ur Leukocyte Esterase (NEGATIVE) Urine RBC (0-5/HPF) Urine WBC (0-5/HPF) Ur Squamous Epith Cells (0-5/HPF) Urine Bacteria (None) Ur Culture Indicated? Vol Urine Centrifuged MDM Narrative Medical decision making narrative: CC: Fever weakness Complicating co-morbidities: Recent diagnosis of pancreatic cancer and initial chemotherapy 2 weeks ago. Treatment at [facility] Data collected from: patient, Medical records reviewed: Oncology contact information reviewed Differential considered: Chemotherapy related sepsis, pancreatitis, bowel obstruction, ascending cholangitis Exam documented above, pertinent findings include: Flushed, appears unwell, significantly tender upper abdomen without rebound at this time Lab Test results independently reviewed as above. Pertinent findings: CBC shows white count of 4.8, hemoglobin of 12.4 and platelets at 1O2 Chemistries show mild hyponatremia at 1:29 a.m., normal renal function Urine has no suggestion of urinary tract infection Imaging studies independently reviewed: Redemonstration ill-defined solid/cystic mass in the pancreatic body, better seen on comparison MRI dated March 25, 2025. No significant main pancreatic ductal dilatation. There is mild peripancreatic inflammatory stranding near the pancreatic head and tail. Findings may represent pancreatitis. Recommend clinical/laboratory correlation. No peripancreatic fluid collections. No evidence for abscess formation. Treatments: Fluids, Toradol, cefepime Re-evaluations: transfer center to talk with oncology Dr Nuñez, hospitalist at [place] Discussion: Discussion with hospitalist at [facility]. Given his recent cancer diagnosis chemotherapy, concerns for sepsis and recent hospitalization at [facility] we all agreed that transfer back to [facility] for treatment of current symptoms and further diagnostic workup to clearly defined current symptoms is most appropriate. Patient is not currently showing signs of sepsis. Pain has been controlled, fevers controlled, antibiotics have been administered. he will be safe to transfer to [facility] floor when bed is available Discharge Plan Departure Patient Disposition: [facility] Clinical Impression: Pancreatitis Qualifiers: Chronicity: acute Pancreatitis type: unspecified pancreatitis type Acute pancreatitis complication: unspecified Qualified Code(s): K85.90 - Acute pancreatitis without necrosis or infection, unspecified Pancreatic cancer Qualifiers: Pancreatic malignancy location: unspecified Qualified Code(s): C25.9 - Malignant neoplasm of pancreas, unspecified Fever Qualifiers: Fever type: unspecified Qualified Code(s): R50.9 - Fever, unspecified Prescriptions: No Action Eliquis 5 mg tablet 5 mg PO BID Qty: 60 0RF metoprolol succinate 25 mg tablet extended release 24 hr 25 mg PO BID Qty: 60 0RF Eliquis 5 mg tablet 5 mg PO BID Qty: 60 0RF metoprolol succinate 25 mg tablet extended release 24 hr 25 mg PO BID Qty: 60 0RF Referrals: José Askew MD [Primary Care Provider, Family Practice]
--- NOTE | 2025-05-01 16:40 | DI.CT.S_ITS ---
PROCEDURE: CT ABDOMEN PELVIS W CON INDICATIONS: abd pain, fever, recent pancreatic CA dx, TECHNIQUE: After the administration of intravenous contrast, axial sections acquired from the lung bases to the pubic symphysis. Coronal and sagittal reformats were performed. For radiation dose reduction, the following was used: automated exposure control, adjustment of mA and/or kV according to patient size. COMPARISON: [facility], MR, MR AB PANCREATIC/MRCP PROTOCOL, 03/25/2025, 19:49. [facility], CT, CT ABDOMEN PELVIS W CON, 03/10/2021, 11:16. FINDINGS: Image quality: Diagnostic. Lower Chest: Moderate bibasilar atelectasis. Heart size is normal. ABDOMEN: Liver: No solid mass. Gallbladder: There is minimal gallbladder distension with layering fluid and air. This is likely related to biliary stent placement. Biliary ducts: Moderate pneumobilia. Biliary stent noted. Suggestion of mild central hepatic biliary ductal dilatation. Pancreas: Redemonstration of ill-defined cystic/solid pancreatic body mass better seen on comparison MRI. Mild peripancreatic stranding near the pancreatic tail and head. No interval increase in size of main pancreatic duct. No abnormal fluid collections. Spleen: Size is within normal limits. Adrenal Glands: No adrenal nodules. Kidneys and Ureters: No hydronephrosis. No solid mass. No complex renal cystic lesion which requires follow up. Stable partially exophytic left renal cyst. Tiny punctate nonobstructing renal stones bilaterally. Bilateral ureters are normal in course and caliber. Stomach and Bowel: Moderate scattered colonic diverticulosis. Circumferential wall thickening of the sigmoid colon and rectum. No significant inflammatory stranding. No evidence for small bowel obstruction or associated inflammatory changes. Peritoneum: No abnormal intraperitoneal fluid. No free air. Ventral Wall: No significant ventral hernia. Abdominal Nodes: No retroperitoneal or mesenteric adenopathy by size criteria. Vessels: Aorta and inferior vena cava are normal in size. PELVIS: Pelvic Organs: Prostatomegaly. Bladder: No bladder wall thickening, accounting for underdistention. Pelvic Nodes: No enlarged lymph nodes. Miscellaneous: No inguinal hernias are seen. Bones: No aggressive osseous abnormality. No acute vertebral body compression fractures. Multilevel spondylitic changes throughout the imaged spine. No suspicious osseous lesions. IMPRESSION: He 1. Moderate pneumobilia and suggestion of mild central hepatic biliary ductal dilatation. There is also a mildly distended air/fluid-filled gallbladder without significant wall thickening. Findings likely related to placement of biliary stent. 2. Redemonstration ill-defined solid/cystic mass in the pancreatic body, better seen on comparison MRI dated March 25, 2025. No significant main pancreatic ductal dilatation. There is mild peripancreatic inflammatory stranding near the pancreatic head and tail. Findings may represent pancreatitis. Recommend clinical/laboratory correlation. No peripancreatic fluid collections. No evidence for abscess formation. 3. Scattered colonic diverticulosis with wall thickening of the sigmoid colon and rectum. Mild diverticulitis versus colitis not excluded. Other chronic findings as above. Dictated by: Prasanth Jim M.D. on 05/01/2025 at 17:03 Approved by: Prasanth Jim M.D. on 05/01/2025 at 17:14
[2025-05-01] MEDS: SODIUM CHLORIDE 0.9% 1,000 ML 1000 ML IV (17:11)
[2025-05-01 17:18] LABS: Appearance Urine UA CLEAR; Bilirubin Urine UA NEGATIVE (NEGATIVE); Color Urine UA YELLOW; Glucose Urine UA NEGATIVE (Negative); Ketones Urine UA NEGATIVE (NEGATIVE); Leukocyte Esterase Urine UA NEGATIVE (NEGATIVE); Nitrite Urine UA NEGATIVE (Negative); Occult Blood Urine UA 2+ (Negative); Protein Urine UA TRACE (Negative); Specific Gravity Urine UA 1.010 (1.000-1.035); Urobilinogen Urine UA 0.2 E.U./dL (0.2); pH Urine UA 6.0 (4.5-8.0)
[2025-05-01 17:24] LABS: Culture Indicated Urine Cult Not Indicated
[2025-05-01 17:39] LABS: Add Manual Diff / Slide Review NO; Hematocrit 36.8 % (41-53); Hemoglobin 12.4 g/dL (13.5-17.5); Lymphocytes Absolute Auto 700 /uL (1100-4500); Mean Corpuscular HGB Conc 33.8 % (30-36); Mean Corpuscular Hemoglobin 30.6 PG (26-34); Mean Corpuscular Volume 90.5 fL (80-100); Platelet Count 102 X10^3/uL (150-400)
[2025-05-01 17:44] LABS: Alanine Aminotransferase 33 IU/L (<50); Albumin 4.0 g/dL (3.5-5.0); Albumin Globulin Ratio 1.3 (1.0-2.8); Alkaline Phosphatase 229 U/L (38-126); Blood Urea Nitrogen 14 mg/dL (9-20); Calcium 9.3 mg/dL (8.4-10.2); Carbon Dioxide 23 mmol/L (22-32); Chloride 96 mmol/L (98-107); Estimated Glomerular Filt Rate > 60 mL/min (>60); Globulin 3.1 g/dL (1.7-4.1); Glucose 132 mg/dL (70-99); HEMOLYSIS 16 (0-50); Lipase 34 U/L (23-300); Magnesium 1.9 mg/dL (1.6-2.3); Potassium 4.3 mmol/L (3.4-5.1); Sodium 129 mmol/L (137-145); Total Protein 7.1 g/dL (6.3-8.2)
[2025-05-01 17:56] LABS: NT-proBNP (BNP-Adult 18+) 1230 pg/mL (<450); Troponin I 0.013 ng/mL (0.01-0.034)
[2025-05-01] MEDS: KETOROLAC 30 MG/ML VIAL 15 MG IV (17:59)
[2025-05-01 18:01] LABS: Procalcitonin 0.132 ng/mL (<0.5)
[2025-05-01] MEDS: CEFEPIME 2 GM in SODIUM CHLORIDE 0.9% 100 ML IV (18:08)
[2025-05-01 18:23] LABS: Lactate (Lactic Acid) 1.5 mmol/L (0.7-2.1)
== END 2025-05-01 20:26 | disposition short-term general hospital (02) ==
PROVIDERS: Emergency Provider Emergency Medicine; PCP Family Medicine
DX: K85.90 Acute pancreatitis without necrosis or infection, unspecified (principal); C25.9 Malignant neoplasm of pancreas, unspecified; R50.9 Fever, unspecified; Z86.79 Personal history of other diseases of the circulatory system; Z79.01 Long term (current) use of anticoagulants; Z92.21 Personal history of antineoplastic chemotherapy
CPT/HCPCS: 36415; 74177; 80053; 81001; 83605; 83690; 83735; 83880; 84145; 84484; 85025; 87040; 96361; 96365; 96375; 99284; J0692; J1885; J7030; J7050; Q9967

== ENCOUNTER 2025-05-27 11:46 | Emergency (ER) | payer MEDICARE, OTHER, SELFPAY ==
[2025-05-27 11:45] VITALS: BP 197/93; PULSE 75; RESP 20; TEMP 36.5; O2SAT 97; BMI 26.1
--- NOTE | 2025-05-27 12:02 | DI.RAD.S_ITS ---
PROCEDURE: XR CHEST 1V INDICATIONS: chest pain TECHNIQUE: One view of the chest was acquired. COMPARISON: [facility], CR, XR CHEST 1V, 03/25/2025, 17:45. FINDINGS: Surgical changes and devices: Right chest wall Port-A-Cath tip is in SVC. Lungs and pleura: Increased interstitial lung markings are noted bilaterally slightly increased compared to previous study. No definite focal infiltrate. No pleural effusions or pneumothorax. Mediastinum: Mediastinal contours appear normal. Heart size is mildly enlarged. Bones and chest wall: No suspicious bony lesions. Overlying soft tissues appear unremarkable. IMPRESSION: Suggestion of mild pulmonary vascular congestion and pulmonary edema superimposed on chronic interstitial lung disease. No definite focal infiltrate. No pleural effusion or pneumothorax. Dictated by: Delon Chavez M.D. on 05/27/2025 at 12:31 Approved by: Delon Chavez M.D. on 05/27/2025 at 12:32
[2025-05-27 12:16] LABS: Add Manual Diff / Slide Review NO; Hematocrit 42.0 % (41-53); Hemoglobin 14.1 g/dL (13.5-17.5); Lymphocytes Absolute Auto 1700 /uL (1100-4500); Mean Corpuscular HGB Conc 33.5 % (30-36); Mean Corpuscular Hemoglobin 30.6 PG (26-34); Mean Corpuscular Volume 91.3 fL (80-100); Platelet Count 166 X10^3/uL (150-400)
[2025-05-27 12:25] LABS: Alanine Aminotransferase 27 IU/L (<50); Albumin 4.4 g/dL (3.5-5.0); Albumin Globulin Ratio 1.3 (1.0-2.8); Alkaline Phosphatase 175 U/L (38-126); Blood Urea Nitrogen 10 mg/dL (9-20); Calcium 9.8 mg/dL (8.4-10.2); Carbon Dioxide 27 mmol/L (22-32); Chloride 101 mmol/L (98-107); Estimated Glomerular Filt Rate > 60 mL/min (>60); Globulin 3.3 g/dL (1.7-4.1); Glucose 162 mg/dL (70-99); HEMOLYSIS 21 (0-50); Lipase 68 U/L (23-300); Magnesium 2.0 mg/dL (1.6-2.3); Potassium 3.7 mmol/L (3.4-5.1); Sodium 137 mmol/L (137-145); Total Protein 7.7 g/dL (6.3-8.2)
[2025-05-27 12:37] LABS: NT-proBNP (BNP-Adult 18+) 1240 pg/mL (<450); Troponin I < 0.012 ng/mL (0.01-0.034)
--- NOTE | 2025-05-27 12:48 | ED.ABDPAIN ---
HPI - Abdominal Pain General Chief Complaint: Abdominal Pain Stated Complaint: UQ ABD Px Time Seen by Provider: 05/27/25 11:52 Source: patient and EMS Mode of arrival: EMS History of Present Illness HPI narrative: Patient is a 75-year-old male history of pancreatic cancer with biliary stent, recent admission at for meningitis, AFib on Eliquis presenting today with upper abdominal pain. He was recently released from rehab. Last night started developing upper abdominal pain. He has had run round of chemotherapy in April for his cancer and then has had multiple complications since. He has not had any fever or chills. He is not confused per . He has no headache or neck pain. He generally seems weak. is here at bedside and is his primary historian. Sounds like most care is at [facility] Related Data Previous Rx's ?Medication ?Instructions ?Recorded apixaban 5 mg tablet (Eliquis) 5 mg PO BID #60 tabs 07/28/23 apixaban 5 mg tablet (Eliquis) 5 mg PO BID #60 tabs 07/28/23 metoprolol succinate 25 mg 25 mg PO BID #60 tabs 07/28/23 tablet,extended release 24 hr metoprolol succinate 25 mg 25 mg PO BID #60 tabs 07/28/23 tablet,extended release 24 hr Allergies Allergy/AdvReac Type Severity Reaction Status Date / Time Sulfa (Sulfonamide Allergy Severe RASH Verified 05/01/25 15:13 Antibiotics) (SULFA (SULFONAMIDE ANTIBIOTICS)) Patient History Medical History (Updated 05/27/25 @ 14:10 by Dee Kuhn DO) Pancreatic cancer Lichen planus Kidney stones (~2000) Colon polyp Hyperlipidemia Family History Sister Age: 86 Breast cancer, stage 0 Brother No problems noted. Father No problems noted. Mother No problems noted. Social History household members: spouse Smoking Status: Never smoker alcohol intake: current Smoking Status: Never smoker alcohol intake frequency: 0-2 drinks per day Exam Initial Vital Signs Initial Vital Signs: Vital Signs Temperature 97.7 F 05/27/25 11:45 Pulse Rate 75 05/27/25 11:45 Respiratory Rate 20 05/27/25 11:45 Blood Pressure 197/93 H 05/27/25 11:45 Pulse Oximetry 97 05/27/25 11:45 Oxygen Delivery Method Room Air 05/27/25 11:45 GENERAL: Alert week 75-year-old male and in no acute distress. HEENT: Head atraumatic,EOMI, pupils reactive, face symmetric, moist mucous membranes CARDIOVASCULAR: Regular rate and rhythm without murmurs, rubs or gallops. RESPIRATORY: Breath sounds equal bilaterally, no wheezes rales or rhonchi. ABDOMEN: Soft, nontender. Normoactive bowel sounds all 4 quadrants. No guarding or rebound. EXTREMITIES: Normal range of motion, no clubbing or edema. Neurovascularly intact NEUROLOGICAL: Alert and oriented x4.Normal gait and speech. Cranial nerves II through XII grossly intact. SKIN: Warm, dry, no laceration, no petechiae, no rashes or lesions. Course Orders Ordered: ED Orders 05/27/25 11:30 Complete Blood Count AUTO DIFF Stat Comprehensive Metabolic Panel Stat Lipase Stat Magnesium Stat NT-proBNP (BNP-Adult 18+) Stat Troponin I Stat 05/27/25 12:02 XR chest 1V Stat EKG-12 Lead Stat 05/27/25 12:48 CT chest abd pel w con Stat Discontinued Medications Acetaminophen (Ofirmev) 1,000 mg in 100 mls @ 400 mls/hr IV NOW ONE Stop: 05/27/25 13:04 Last Infusion: 05/27/25 14:22 Dose: Infused Documented By: Admin: 05/27/25 13:21 Dose: 400 mls/hr Documented By: EILEEN Vital Signs Vital signs: Vital Signs - 8 hr 05/27/25 11:45 05/27/25 14:24 05/27/25 14:48 Temperature 97.7 F Pulse Rate 75 50 L 50 L Respiratory Rate 20 20 20 Blood Pressure 197/93 H 152/76 H 135/72 Pulse Oximetry 97 95 96 Oxygen Delivery Method Room Air Room Air Room Air MDM - Abdominal Pain Lab Data 05/27/25 11:30 05/27/25 11:30 Labs: Lab Results 05/27/25 Range/Units 11:30 WBC 4.5 (4.5-11.0) X10^3/uL RBC 4.60 (4.5-5.9) X10^6/uL Hgb 14.1 (13.5-17.5) g/dL Hct 42.0 (41-53) % MCV 91.3 (80-100) fL MCH 30.6 (26-34) PG MCHC 33.5 (30-36) % RDW 17.4 H (11.6-14.8) % Plt Count 166 (150-400) X10^3/uL Neut % (Auto) 46.3 L (50-75) % Lymph % (Auto) 37.9 (25-40) % [place] % (Auto) 12.6 (3-14) % Eos % (Auto) 2.5 (2-4) % Baso % (Auto) 0.7 (0-2) % Neut # (Auto) 2100 (3441-5071) /uL Lymph # (Auto) 1700 (2079-5379) /uL [place] # (Auto) 600 (0-900) /uL Eos # (Auto) 100 (0-450) /uL Baso # (Auto) 0 (0-100) /uL Sodium 137 (137-145) mmol/L Potassium 3.7 (3.4-5.1) mmol/L Chloride 101 (98-107) mmol/L Carbon Dioxide 27 (22-32) mmol/L BUN 10 (9-20) mg/dL Creatinine 0.54 L (0.66-1.25) mg/dL Estimated GFR > 60 (>60) mL/min BUN/Creatinine Ratio 18.5 (6-22) Glucose 162 H (70-99) mg/dL Calcium 9.8 (8.4-10.2) mg/dL Magnesium 2.0 (1.6-2.3) mg/dL Total Bilirubin 0.8 (0.2-1.3) mg/dL AST 39 (17-59) IU/L ALT 27 (<50) IU/L Alkaline Phosphatase 175 H (38-126) U/L Troponin I < 0.012 (0.01-0.034) ng/mL NT-Pro-B Natriuret Pep 1240 H (<450) pg/mL Total Protein 7.7 (6.3-8.2) g/dL Albumin 4.4 (3.5-5.0) g/dL Globulin 3.3 (1.7-4.1) g/dL Albumin/Globulin Ratio 1.3 (1.0-2.8) Lipase 68 (23-300) U/L Imaging Data CT scan - chest: Radiologist's Impression: PROCEDURE: CT CHEST ABD PEL W CON INDICATIONS: Pancreatic cancer upper abdominal pain TECHNIQUE: After the administration of intravenous contrast, 5 mm thick sections acquired from the lung apices to the symphysis. 5 mm coronal and sagittal reformats were performed, with additional 7 mm MIP reformats through the lungs. For radiation dose reduction, the following was used: automated exposure control, adjustment of mA and/or kV according to patient size. COMPARISON: [facility], CT, CT HIGH RESOLUTION CHEST, 01/30/2024, 9:09. [facility], CT, CT ABDOMEN PELVIS W CON, 05/01/2025, 16:46. FINDINGS: Image quality: Excellent. CHEST: Lower Neck: No enlarged lymph nodes. Thyroid: No thyroid nodules which require sonographic follow up, per consensus guidelines. Axillae: No enlarged lymph nodes. Chest Wall: Right chest wall Port-A-Cath tip is in SVC.. Lungs and Pleura: Compared to previous study, there is interval significant worsening of peripheral reticulation with bronchiectasis. Moderate emphysematous changes also seen. No pleural effusion or pneumothorax. No definite focal infiltrates. Ill-defined nodular density in left lung base is seen measures 8 mm in size series 3, image 219. No other suspicious pulmonary nodule is seen. Heart: Heart size is enlarged. No pericardial effusion. Mild atherosclerotic calcifications are noted in coronary arteries and thoracic aorta. Thoracic Vessels: The aorta and pulmonary arteries demonstrate normal size. Mediastinum and Ilda: No enlarged lymph nodes. Esophagus: Questionable diffuse esophageal wall thickening, no significant hiatal hernia. ABDOMEN: Liver: No solid mass. Gallbladder: There is interval placement of a surgical device connecting gallbladder wall with adjacent proximal portion of duodenum. No significant gallbladder wall thickening or calcified gallstones. Biliary ducts: Mild central [place] biliary dilatation is again seen and unchanged. Pneumobilia is again seen unchanged from prior study. Biliary stent is again noted. Pancreas: Patient's known ill-defined mixed solid and cystic pancreatic body mass is not significantly changed in size and appearance. Mild peripancreatic fat stranding is seen without discrete pancreatic fluid collection. Spleen: Size is within normal limits. Adrenal Glands: No adrenal nodules. Kidneys and Ureters: No hydronephrosis. Bilateral nonobstructing stones are again seen. Large simple appearing upper pole left renal cyst is unchanged. No solid mass. No complex renal cystic lesion which requires follow up. Stomach and Bowel: Normal colonic caliber, without significant wall thickening. Sigmoid diverticulosis without definite CT evidence of acute diverticulitis. No abscess collection. Peritoneum: No abnormal intraperitoneal fluid. No free air. Ventral Wall: No significant ventral hernia. Abdominal Nodes: No retroperitoneal or mesenteric adenopathy by size criteria. Vessels: Aorta and inferior vena cava are normal in size. PELVIS: Pelvic Organs: Mildly enlarged prostate gland with mass effect on floor of urinary bladder. Bladder: Mild diffuse bladder wall thickening without discrete bladder wall mass or calcified bladder stones. Pelvic Nodes: No enlarged lymph nodes. Miscellaneous: No inguinal hernias are seen. Bones: No aggressive osseous abnormality. Degenerative disc disease throughout thoracic and lumbar spine is seen. No acute vertebral body compression fracture. IMPRESSION: 1. Overall stable size and appearance of patient's known large mixed solid and cystic pancreatic body mass. No peripancreatic fluid collection. Mild peripancreatic fat stranding. 2. Presence of biliary stent with pneumobilia unchanged from prior study. Mild central P[place] biliary ductal dilatation also unchanged. 3. Oval placement of drainage device between gallbladder and proximal duodenum suggest clinical correlation. 4. There is no bowel obstruction. No gross abnormal bowel wall thickening or mesenteric fat stranding. No abscess collection. No free fluid or free air. Colonic diverticulosis without CT evidence of acute diverticulitis. 5. Interval significant worsening of interstitial pulmonary fibrosis. Questionable 8 mm solid nodule at left lung base which may represent focal nodular infiltrate/atelectasis. Metastatic lung nodule cannot be entirely excluded given patient's history. Short-term CT chest follow-up in 3 months is recommended. No pleural effusion or pneumothorax. 6. Mild diffuse esophageal wall thickening with small hiatal hernia is concerning for mild esophagitis. Clinical correlation is recommended. 7. Other chronic findings as above not significantly changed from prior study. Dictated by: Delon Chavez M.D. on 05/27/2025 at 13:23 Chest x-ray: Radiologist's Impression: PROCEDURE: XR CHEST 1V INDICATIONS: chest pain TECHNIQUE: One view of the chest was acquired. COMPARISON: [facility], , XR CHEST 1V, 03/25/2025, 17:45. FINDINGS: Surgical changes and devices: Right chest wall Port-A-Cath tip is in SVC. Lungs and pleura: Increased interstitial lung markings are noted bilaterally slightly increased compared to previous study. No definite focal infiltrate. No pleural effusions or pneumothorax. Mediastinum: Mediastinal contours appear normal. Heart size is mildly enlarged. Bones and chest wall: No suspicious bony lesions. Overlying soft tissues appear unremarkable. IMPRESSION: Suggestion of mild pulmonary vascular congestion and pulmonary edema superimposed on chronic interstitial lung disease. No definite focal infiltrate. No pleural effusion or pneumothorax. Dictated by: Delon Chavez M.D. on 05/27/2025 at 12:31 Approved by: Delon Chavez M.D. on 05/27/2025 at 12:32 ECG Data Attestation: I personally reviewed and interpreted this ECG as follows: Prior ECG tracings: available for review Interpretation: Sinus rhythm rate 56 PA interval 170 QRS 90 QTC cough 47 PAC noted no acute ischemia MDM Narrative Medical decision making narrative: MDM CC: Abdominal pain Complicating co-morbidities: Pancreatic cancer paroxysmal atrial fibrillation on Eliquis Data collected from: patient Medical records reviewed: Previous ED visits Differential considered: Metastatic disease bowel obstruction Exam documented above, pertinent findings include: Weak alert 75-year-old abdomen tender upper epigastric region negative Laguna's sign Lab Test results independently reviewed as above. Pertinent findings: CBC no leukocytosis or anemia CMP no electrolyte abnormality no ISABELLE Troponin negative, BNP 1240 Bilirubin liver enzymes within normal limits lipase 68 Independently reviewed EKG as above Sinus rhythm no ischemia Imaging studies independently reviewed: Chest x-ray no acute cardiopulmonary process CT chest abdomen pelvis no acute abnormality, overall stable disease biliary stent in place and remains unchanged probable pulmonary fibrosis possible metastatic disease recommend follow-up her maybe possible mild esophagitis Consultations: [ ] Treatments: IV Tylenol Re-evaluations: Patient is feeling a bit better after the Tylenol vitals are stable resting comfortable Discussion: Patient is 75-year-old male history of metastatic pancreatic cancer has had 1 round of chemotherapy presenting today with abdominal pain. He has had recent complicated admissions with a meningitis IV antibiotics for 3 weeks was at rehab now having some mild pain. On exam he does not have any peritoneal signs no Laguna's sign. Blood work is overall reassuring. CT scan does not show any acute change possible pulmonary fibrosis or metastatic disease in the lungs. However he is not hypoxic or short of breath At this time recommend outpatient follow-up overall workup remains unchanged in stable Discharge Plan Departure Patient Disposition: Home Clinical Impression: Abdominal pain, Pancreatic cancer Instructions: DI for Abdominal Pain-Adult Activity Restrictions/Additional Instructions: *You have been diagnosed with abdominal pain pancreatic cancer *What to do: Follow up with . Overall no new changes today *Continue to take medications as directed Tylenol 1000 mg every 6 hours for eslb-eg-lwunrwad pain Oxycodone 5-10 mg every 6 hours for severe pain - as previously perscribed *Follow up with your primary care provider in 2-3 days or call [phone] *Return to ER if you should have increasing pain persistent vomiting or any new, worsening or concerning symptoms Prescriptions: No Action Eliquis 5 mg tablet 5 mg PO BID Qty: 60 0RF metoprolol succinate 25 mg tablet extended release 24 hr 25 mg PO BID Qty: 60 0RF Eliquis 5 mg tablet 5 mg PO BID Qty: 60 0RF metoprolol succinate 25 mg tablet extended release 24 hr 25 mg PO BID Qty: 60 0RF Referrals: José Askew MD [Primary Care Provider, Family Practice] Stand Alone Forms: Patient Portal/API
--- NOTE | 2025-05-27 12:54 | EKG_ITS ---
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
[2025-05-27] MEDS: ACETAMINOPHEN IV 1,000 MG/100 ML VIAL 400 MG IV (13:21)
[2025-05-27 14:24] VITALS: BP 152/76; PULSE 50; RESP 20; O2SAT 95
[2025-05-27 14:48] VITALS: BP 135/72; PULSE 50; RESP 20; O2SAT 96
== END 2025-05-27 14:35 | disposition home or self-care (01) ==
PROVIDERS: Emergency Provider Emergency Medicine; PCP Family Medicine
DX: R10.10 Upper abdominal pain, unspecified (principal); C25.9 Malignant neoplasm of pancreas, unspecified
CPT/HCPCS: 71045; 71260; 74177; 80053; 83690; 83735; 83880; 84484; 85025; 93005; 96365; 99284; J0131; Q9967

== ENCOUNTER → 2025-06-05 16:22 | Outpatient (CLI) | payer MEDICARE, OTHER, SELFPAY ==
[2025-06-05 17:07] LABS: Add Manual Diff / Slide Review NO; Hematocrit 34.6 % (41-53); Hemoglobin 11.7 g/dL (13.5-17.5); Lymphocytes Absolute Auto 2100 /uL (1100-4500); Mean Corpuscular HGB Conc 33.8 % (30-36); Mean Corpuscular Hemoglobin 30.7 PG (26-34); Mean Corpuscular Volume 90.9 fL (80-100); Platelet Count 159 X10^3/uL (150-400)
[2025-06-05 17:32] LABS: Alanine Aminotransferase 25 IU/L (<50); Albumin 3.5 g/dL (3.5-5.0); Albumin Globulin Ratio 1.3 (1.0-2.8); Alkaline Phosphatase 145 U/L (38-126); Blood Urea Nitrogen 17 mg/dL (9-20); Calcium 9.4 mg/dL (8.4-10.2); Carbon Dioxide 26 mmol/L (22-32); Chloride 104 mmol/L (98-107); Estimated Glomerular Filt Rate > 60 mL/min (>60); Globulin 2.6 g/dL (1.7-4.1); Glucose 132 mg/dL (70-99); HEMOLYSIS < 15 (0-50); Potassium 4.2 mmol/L (3.4-5.1); Sodium 136 mmol/L (137-145); Total Protein 6.1 g/dL (6.3-8.2)
== END ==
PROVIDERS: PCP Family Medicine; Referring Provider Family Medicine; Visit Provider Family Medicine
DX: C78.89 Secondary malignant neoplasm of other digestive organs (principal); I10 Essential (primary) hypertension; I47.9 Paroxysmal tachycardia, unspecified; R73.9 Hyperglycemia, unspecified
CPT/HCPCS: 36415; 80053; 85025